=== PATIENT | female | born 2000 | race Caucasian/White ===

== ENCOUNTER 2023-03-02 19:06 | Emergency (ER) | payer OTHER ==
--- OUTSIDE RECORDS SUMMARY | 2023-03-02 19:12 | XMS REPORT | Continuity of Care Document ---
:2000 Author Organization [facility] t Address [address] [place] [address] [address] [place] [address] Care Team Providers Name Role Phone ALEXIS CANDELARIO Attending Clinician Unavailable МАРИНА HERBERT Attending Clinician Unavailable MARQUIS WEBB Attending Clinician Unavailable LAURA PALAFOX Attending Clinician Unavailable BENJI NAVARRETE Attending Clinician Unavailable RAJINDER ZAMBRANO Attending Clinician Unavailable YIMI BRIGHT Attending Clinician Unavailable TAYLOR DIA Attending Clinician Unavailable GIANNA GOTTI Attending Clinician Unavailable SHERLY LIMA Attending Clinician Unavailable RYANNE GARRETT Attending Clinician Unavailable BRAD PEDRO Attending Clinician Unavailable SETH AMBROSE Attending Clinician Unavailable VALENTINE UREÑA Attending Clinician Unavailable MERVIN PEREZ Attending Clinician Unavailable MINGO ALVAREZ Attending Clinician Unavailable JAD COLMENARES Attending Clinician Unavailable LILI COULTER Attending Clinician Unavailable MARIE THOMAS Attending Clinician Unavailable MILLY ALMEIDA Attending Clinician Unavailable RAYO BARRAZA Attending Clinician Unavailable JANELLE GABRIEL Attending Clinician Unavailable RUSSELL HERNANDEZ Attending Clinician Unavailable NATHANIEL QUACH Attending Clinician Unavailable EDNA FINLEY Attending Clinician Unavailable PATRIZIA URBINA Attending Clinician Unavailable ALEXIS CANDELARIO M.D. Attending Clinician Unavailable AUSTIN CORONA Attending Clinician Unavailable OG BAUTISTA D.O. Attending Clinician Unavailable VAUGHN DUARTE M.D. Attending Clinician Unavailable MILLY ALMEIDA M.D. Attending Clinician Unavailable ENDER CHEW M.D. Attending Clinician Unavailable ALEXIS LERNER M.D. Attending Clinician Unavailable LAURA PALAFOX M.D. Attending Clinician Unavailable ANIYA JUAREZ M.D. Attending Clinician Unavailable SARAHI BARAHONA M.D. Attending Clinician Unavailable RADIOLOGY, MD PROVIDER Attending Clinician Unavailable KARI KIM M.D. Attending Clinician Unavailable REGINA PRITCHARD M.D. Attending Clinician Unavailable SY REEVES M.D. 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 UT meningitis meningitis 8-14 He alth 00:00: 00 Chronic Chronic Disease Active 2020-0 UT folliculit folliculit 6-15 He alth is is 00:00: 00 Diarrhea Diarrhea Disease Active 2020-0 UT 5-21 Health 00:00: 00 Chronic Chronic Disease Active 2020-0 UT GERD GERD 5-18 Health 00:00: 00 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 los 5-18 Health syndrome syndrome 00:00: 00 Generalize Generalize Disease Active 2020-0 U T d d 5-18 Health abdominal abdominal 00:00: pain pain 00 Displaceme Displaceme Disease Active 2019- U T nt of nt of 1-05 Health device device 00:00: 00 Donor port Donor port Disease Active 2019- U T pain pain 1-05 Health 00:00: 00 Encounter Encounter Disease Active 2019- [facility] for care for care 0-25 Health related to related to 00:00: Port-a-Cat Port-a-Cat 00 h h Dysautonom Dysautonom Disease Active 2019-0 U T ia ia 3-30 Health 00:00: 00 Irritable Irritable Disease Active 2019-0 UT bowel bowel 3-30 Health syndrome syndrome 00:00: with with 00 diarrhea diarrhea Chronic Chronic Disease Active 2017-08 UT nausea nausea 2-05 Health 00:00: 00 Chronic Chronic Disease Active UT pain due pain due 7-20 Health to trauma to trauma 00:00: 00 Drug-induc Drug-induc Disease Active U T ed ed 5-30 Health osteoporos osteoporos 00:00: is is 00 Dystonia Dystonia Disease Active UT 2-06 Health 00:00: 00 Intermitte Intermitte Disease Active U T nt nt 8-18 Health vomiting vomiting 00:00: 00 Heart Heart Disease Active UT murmur murmur 9-20 Health 00:00: 00 History of History of Problem Resolve UT Anxiety Anxiety d Physici and and ans depression depression History of History of Problem Resolve UT asthma asthma d Physici ans Autoimmune Autoimmune Problem Active U T encephalom encephalom Ph ysici yelitis yelitis ans History of History of Problem Resolve UT 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 Heart Heart Problem Active UT murmur murmur Physici ans Syncope Syncope Problem Active UT Physici ans SVT SVT Problem Active UT (supravent (supravent Ph ysici ricular ricular ans tachycardi tachycardi a) a) Tremor Tremor Problem Active [facility] ans Diarrhea Diarrhea Problem Active [facility] Physici ans Intermitte Intermitte Problem Active U T nt nt Physici vomiting vomiting ans History of History of Problem Resolve UT Irritable Irritable d Phys ici bowel bowel ans syndrome syndrome with both with both constipati constipati on and on and diarrhea diarrhea Convulsion Convulsion Problem Active U T , , Physici non-epilep non-epilep an s tic tic Vitamin B Vitamin B Problem Active UT 12 12 Physici deficiency deficiency an s Dystonia Dystonia Problem Active UT Physici ans Microcytic Microcytic Problem Active U T anemia anemia Physici ans Nausea, Nausea, Problem Active UT vomiting, vomiting, Phys ici and and ans diarrhea diarrhea History of History of Problem Resolve UT On On d Physici prednisone prednisone an s therapy therapy Spasticity Spasticity Problem Active U T Physici ans Drug-induc Drug-induc Problem Active U T ed ed Physici osteoporos osteoporos an s is is Chronic Chronic Problem Active UT pain due pain due Physic i to trauma to trauma ans Thyroid Thyroid Problem Active UT dysfunctio dysfunctio Ph ysici n n ans Chronic Chronic Problem Active UT nausea nausea Physici ans History of History of Problem Resolve UT Steroid Steroid d Physici acne acne ans Chronic Chronic Problem Active UT folliculit folliculit Ph ysici is is ans Generalize Generalize Problem Active U T d d Physici abdominal abdominal ans pain pain Chronic Chronic Problem Active UT GERD GERD Physici ans Vitamin D Vitamin D Problem Active UT deficiency deficiency Ph ysici ans Use of Use of Problem Active UT proton proton Physici pump pump ans inhibitor inhibitor therapy therapy Irritable Irritable Problem Active UT bowel bowel Physici syndrome syndrome ans with with diarrhea diarrhea Lamine-Mick Lamine-Mick Problem Active U T los los Physici syndrome syndrome ans Dysautonom Dysautonom Problem Active U T ia ia Physici ans Poor Poor Problem Active UT intravenou intravenou Ph ysici s access s access ans Secondary Secondary Problem Active [facility] [place] [place] syndrome syndrome ans Encounter Encounter Problem Active [facility] for care for care Physic i related to related to an s Port-a-Cat Port-a-Cat h h 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 Ph ysici -ataxia -ataxia ans syndrome syndrome Donor port Donor port Problem Active U T pain pain Physici ans Displaceme Displaceme Problem Active U T nt of nt of Physici device device ans History of History of Problem Resolve UT Port-A-Cat Port-A-Cat d Ph ysici h in place h in place an s Aseptic Aseptic Problem Active UT meningitis meningitis Ph ysici ans Migraines Migraines Problem Active UT Physici ans COVID-19 COVID-19 Problem Active UT virus virus Physici infection infection ans Well Well Problem Active UT female female Physici exam with exam with ans routine routine gynecologi gynecologi yessica exam yessica exam Neuropathi Neuropathi Problem Active U T c pain c pain Physici ans Lamine-Mick Lamine-Da Problem Active 2016-02-15 Memoria los nlos 04:10:36 l disease disease Yovany Active Problem 02/15/2016 2..[id number] [id number] Dysautonom Dysautono Problem Active 2016-02-15 Memoria ia dimitrios Active 04:10:36 l Problem [place] 02/15/2016 [id number] Neurologic Problem Active 2016-02-15 M barbie al Neurologic 04:10:36 l symptoms al Yovany symptoms Active Problem 02/15/2016 2.16.840. [id number] 054 Encephalop Encephalo Problem Active 2016-02-15 Memoria athy ghassan 04:10:36 l Active [place] Problem 02/15/2016 2.16.840.1 [id number] 54 Syncope Syncope Problem Active 2016-02-15 Me moria and and 04:10:36 l collapse collapse Norbert n Active Problem 02/15/2016 2.16.840.1 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 [id number] 54 Seizure Seizure Problem Active 2016-02-15 Me isabellaa Active 04:10:36 l Problem Yovany 02/15/2016 2.16.840. 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 [id number] 54 Allergies, Adverse Reactions, Alerts Allergy Allergy Status Severity Reaction(s) Onset Inactive Treating Comm ents Source Name Type Date Date Clinician Etomidat Allergy Active UT e to 12-03 Health substanc 00:00: e 00 Proprano Allergy Active UT lol to 12-03 Health substanc 00:00: e 00 Skin Drug Active UT Protecta Allergy 12-03 Health nts, 00:00: Misc. 00 Etomidat Etomidat Active Info Not Zhen bee e e Available 4-14 l 00:00: Yovany 00 N.K.D.A. N.K.D.A. Active Info Not 2014-08 Zhen bee Available 0-23 l 00:00: [place] 00 Tegaderm Allergy Active UT MISC to drug Physici (finding ans ) etomidat Allergy Active UT e to drug Physici (finding ans ) proprano Allergy Active UT lol to drug Physici (finding ans ) Family History Family Member Diagnosis Comments Start Date Stop Date Source Mother Family history of Vasovagal [facility] syncope Social History Social Habit Start Date Stop Date Quantity Comments Source Exposure to SARS-CoV-2 Not sure [facility] (event) Sex Assigned At 2000 2000 [facility] 00:00:00 00:00:00 Smoking Status Start Date Stop Date Source Never smoked tobacco (finding) [facility] Unknown if ever smoked [facility] Medications Ordered Filled Start Stop Current Ordering Indication Dosage Frequency Signature Comments Components Source Medication Medication Date Date Medication? Clinician (SIG) Name Name OXcarbazepi OXcarbazepi Yes ALEXIS Q0.5D TAKE 1 UT ne 150 MG ne 150 MG 1-19 YANN TABLET Physici Oral Tablet Oral Tablet 00:00: M.D. TWICE ans 00 DAILY. Divalproex Divalproex Yes SONIA 4 QD TAKE 4 UT Sodium ER Sodium ER 8-25 R TOMÁS TABLET Physici 250 MG Oral 250 MG Oral 00:00: M.D. DAILY ans Tablet Tablet 00 Extended Extended Release 24 Release 24 Hour Hour FLUoxetine Yes 40mg QD Take 40 mg U T (PROzac) 40 5-11 by mouth 1 He alth MG capsule 15:34: (one) time 19 each day. hydroxychlo 2020- No [id number] 200mg QD Take 1 UT roquine 5-11 07-11 tablet Health (Plaquenil) 00:00: 04:59 (200 mg 200 MG 00 :00 total) by tablet mouth 1 (one) time each day. predniSONE Yes TAKE 24 UT (Deltasone) 3-04 TABLET Health 50 MG 00:00: Daily tablet 00 methylPREDN 2019-08 Yes USE UT ISolone 0-16 DIRECTED Health (Medrol 00:00: Dospak) 4 00 MG tablets SUMAtriptan Yes TAKE 1 UT (Imitrex) 9-08 TABLET Health 25 MG 00:00: DAILY PRN tablet 00 migraine SUMAtriptan SUMAtriptan Yes VAUGHN 1 QD TAKE 1 UT Succinate Succinate 9-08 GERALD M.D. TABLET Physici 25 MG Oral 25 MG Oral 00:00: DAILY PRN ans Tablet Tablet 00 migraine nadolol Yes Take 1 UT (Corgard) 7-07 tablet by Healt h 20 MG 00:00: mouth, tablet 00 twice daily Nadolol 20 Nadolol 20 Yes ENDER CHEW Take 1 UT MG Oral MG Oral 7-07 M.D. tablet by Phys ici Tablet Tablet 00:00: mouth, ans 00 twice daily rifAXIMin Yes Take 1 tab UT (Xifaxan) 6-01 by mouth Health 550 MG 00:00: three tablet 00 times daily x 2 weeks. Xifaxan 550 Xifaxan 550 Yes LAURA Take 1 tab UT MG Oral MG Oral 6-01 VAN by mouth Physi ci Tablet Tablet 00:00: ARSDALL three ans 00 M.D. times daily x 2 weeks. nadolol 2018-08 Yes TAKE 1 UT (Corgard) 0-02 TABLET Health 40 MG 00:00: BEDTIME tablet 00 Nadolol 40 Nadolol 40 2018-08 Yes SARAHI 1 TAKE 1 UT MG Oral MG Oral 0-02 JUN TABLET P hysici Tablet Tablet 00:00: M.D. BEDTIME ans 00 hydroxocoba Yes INJECT 1 UT richi 1000 7-23 ML IN THE Heal th MCG/ML 00:00: MUSCLE solution 00 EVERY 2 WEEKS Hydroxocoba Hydroxocoba Yes ENDER CHEW INJECT 1 UT richi richi 7-23 M.D. ML IN THE Physici Acetate Acetate 00:00: MUSCLE ans 1000 MCG/ML 1000 MCG/ML 00 EVERY 2 Intramuscul Intramuscul WEEKS ar Solution ar Solution omeprazole Yes TAKE TWO UT (PriLOSEC) 7-18 CAPSULES Healt h [address] 00:00: BY MOUTH capsule 00 DAILY AT LEAST 30 MINUTES TO 1 HOUR PRIOR TO EATING. Omeprazole Omeprazole Yes LAURA TAKE TWO UT 40 MG Oral 40 MG Oral 7-18 VAN CAPSULES Physici Capsule Capsule 00:00: ARSDALL BY MOUTH ans Delayed Delayed 00 M.D. DAILY AT Release Release LEAST 30 MINUTES TO 1 HOUR PRIOR TO EATING. immune 2019-0 Yes Gammunex C UT globulin, 5-10 10 % 74 gm Heal th human, 00:00: IV every 3 (Gamunex-C) 00 weeks x 1 infusion year Gamunex-C Gamunex-C 2018- Yes ALEXIS Vazquezx C UT 10 GM/100ML 10 GM/100ML 5-10 ANDREE 10 % 74 gm Physici Injection Injection 00:00: M.D. IV every 3 ans Solution Solution 00 weeks x 1 year clonazePAM 2018- Yes Place 1 UT (KlonoPIN) 5-03 tablet Health 2 MG 00:00: under disintegrat 00 tongue PRN ing tablet clonazePAM clonazePAM Yes ENDER CHELER Place 1 UT 2 MG Oral 2 MG Oral 5-03 M.D. tablet Phy sici Tablet Tablet 00:00: under ans Disintegrat Disintegrat 00 tongue PRN ing ing hyoscyamine 2018- Yes Place 1/2 U T (Levsin) 4-12 tablet (up Healt h 0.125 MG SL 00:00: to 2 full tablet 00 tablets) under the tongue and allow to dissolve every 4 hours as needed for abdominal pain and cramping. Hyoscyamine Hyoscyamine 2018- Yes LAURA Place 1/2 UT Sulfate Sulfate 4-12 VAN tablet (up Phy sici 0.125 MG 0.125 MG 00:00: ARSDALL to 2 full ans Sublingual Sublingual 00 M.D. tablets) Tablet Tablet under the Sublingual Sublingual tongue and allow to dissolve every 4 hours as needed for abdominal pain and cramping. promethazin 2017-08 Yes TAKE 1 UT e 2-05 TABLET Health (Phenergan) 00:00: EVERY 6 25 MG 00 HOURS tablet NEEDED FOR NAUSEA. Promethazin Promethazin 2017-08 Yes LAURA Q6H TAKE 1 UT e HCl - 25 e HCl - 25 2-05 VAN TABLET P hysici MG Oral MG Oral 00:00: ARSDALL EVERY 6 a ns Tablet Tablet 00 M.D. HOURS NEEDED FOR NAUSEA. ergocalcife Yes TAKE 1 UT rol 7-10 CAPSULE Health (Vitamin 00:00: EVERY D2) 1.25 MG 00 SATURDAY and (19332 UT) capsule or Saturday (total of twice weekly); TAKE WITH FOOD. Vitamin D Vitamin D Yes LAURA TAKE 1 UT (Ergocalcif (Ergocalcif 7-10 VAN CAPSULE Physici pedro) 1.25 pedro) 1.25 00:00: ARSDALL EVERY ans MG (55148 MG (06759 00 M.D. SATURDAY and UT) Oral UT) Oral Capsule Capsule or Saturday (total of twice weekly); TAKE WITH FOOD. Fludrocorti Yes Yoni 1 tablet M emoria sone 04-28 [place] Acetate 00:00: Yovany 00 Methocarbam Yes Yoni Unknown Me moria ol 11-28 [place] 04:14: Yovany 44 Fluoxetine Yes Yoni 1 capsule M emoria HCl (PMDD) 11-28 [place] 04:14: Yovany 44 Etodolac Yes Oyni 1 tablet Zhen bee 11-28 [place] 04:14: Yovany 44 Symbicort Yes Yoni 2 puffs Zhen bee - [place] 04:14: Yovany 44 [place] Yes Yoni 1 tablet Memoria - [place] as needed l 04:14: Yovany 44 [place] Yes Yoni 1 puff Memoria 11-28 [place] 04:14: Yovany 44 Multivitami Yes Yoni Unknown Me moria n - [place] 04:14: Yovany 44 Duloxetine Yes Yoni 1 capsule M emoria HCl - [place] 04:14: Yovany 44 Xopenex HFA Yes Yoni 1 puff as Memoria - [place] needed l 04:14: Yovany 44 Levalbutero Yes Yoni 3 ml Memor ia l HCl 11-28 [place] 04:14: Yovany 44 Acetaminoph Yes Yoni 1 capsule Memoria en - [place] as needed l 04:14: Yovany 44 Slow Yes Yoni Unknown Memoria Release 11-28 [place] Iron 04:14: Yovany 44 Fludrocorti Yes Yoni Unknown Me moria sone - [place] Acetate 04:14: Yovany 44 Nexium 2016-0 Yes Yoni Unknown Memoria 4-26 [place] 04:14: 44 Amitriptyli 2014-08 Yes Yoni 1 tablet M emoria ne HCl 2-28 [place] 00:00: 00 Fludrocorti 2014- Yes Yoni 1 tablet M emoria sone 0-23 [place] Acetate 00:00: 00 Immunizations Ordered Immunization Filled Immunization Date Status Commen ts Source Name Name influenza virus 2013-05-28 Completed [facility] vaccine, unspecified 00:00:00 formulation Meningococcal, MCV4, 2013-03-19 Completed [facility] P [facility]ysicians unspecified 00:00:00 conjugate formulation(groups A, C, Y and W-135) Influenza, seasonal, 2012-07-02 Completed [facility] injectable, 00:00:00 preservative free Boostrix 5-2.5-18.5 2012-01-31 Completed [facility] Intramuscular 00:00:00 Suspension Hepatitis A 2011-01-25 Completed [facility] 00:00:00 Hepatitis A 2009-03-01 Completed [facility] 00:00:00 influenza virus 2006-07-08 Completed [facility] ians vaccine, unspecified 00:00:00 formulation Varivax 1350 2005-01-02 Completed [facility] s PFU/0.5ML 00:00:00 Subcutaneous Injectable OPV 2004-07-04 Completed [facility] 00:00:00 DTaP, unspecified 2004-07-04 Completed [facility] formulation 00:00:00 M-M-R II 2004-07-04 Completed [facility] Subcutaneous 00:00:00 Injectable M-M-R II 2002-01-01 Completed [facility] Subcutaneous 00:00:00 Injectable Hib, Haemophilus 2001-10-03 Completed [facility] influenzae type b 00:00:00 vaccine, conjugate unspecified formulation OPV 2001-10-03 Completed [facility] 00:00:00 DTaP, unspecified 2001-10-03 Completed [facility] formulation 00:00:00 Hepatitis B vaccine, 2000 Completed [facility]ys[facility] unspecified 00:00:00 formulation Hib, Haemophilus 2000 Completed [facility] influenzae type b 00:00:00 vaccine, conjugate unspecified formulation DTaP, unspecified 2000 Completed [facility] formulation 00:00:00 Hib, Haemophilus 2000 Completed [facility] influenzae type b 00:00:00 vaccine, conjugate unspecified formulation OPV 2000 Completed [facility] 00:00:00 DTaP, unspecified 2000 Completed [facility] formulation 00:00:00 Hib, Haemophilus 2000 Completed [facility] influenzae type b 00:00:00 vaccine, conjugate unspecified formulation OPV 2000 Completed [facility] 00:00:00 DTaP, unspecified 2000 Completed [facility] formulation 00:00:00 Hepatitis B vaccine, 2000 Completed [facility] unspecified 00:00:00 formulation Hepatitis B vaccine, 2000 Completed [facility] unspecified 00:00:00 formulation FluMist LIQD Unknown Completed [facility] Vital Signs Vital Name Observation Time Observation Value Comments Source Systolic blood 2020-11-25 123 mm[Hg] Location: R[facility]; [place] [facility] pressure 09:15:00 Position: Sitting Diastolic blood 2020-11-25 81 mm[Hg] Location: [facility]; [facility] ans pressure 09:15:00 Position: Sitting Body height 2020-11-25 62 [in_us] [facility] 09:15:00 Weight 2020-11-25 160 [lb_av] [facility] 09:15:00 Body mass index 2020-11-25 29.26 kg/m2 [facility] (BMI) [Ratio] 09:15:00 Body temperature 2020-11-25 96.5 [degF] Method: [facility] ns 09:15:00 Temporal Heart Rate 2020-11-25 86 /min [facility] 09:15:00 Height 2019-08-07 160 cm [facility] 15:20:00 Weight 2019-08-07 68.2 kg [facility] 15:20:00 Body Mass Index 2019-08-07 26.64 kg/m2 [facility] Calculated 15:20:00 Temperature 2019-08-07 97.3 [degF] Method: [facility] 15:20:00 Tympanic Head Circumference 2019-08-07 58.5 cm [facility] 15:20:00 BP Systolic 2019-06-09 112 mm[Hg] Location: [facility]; [facility] 09:31:00 Position: Sitting BP Diastolic 2019-06-09 86 mm[Hg] Location: [facility]; [facility] 09:31:00 Position: Sitting Height 2019-06-09 61 [in_us] [facility] 09:31:00 Weight 2019-06-09 163.5 [lb_av] [facility] 09:31:00 Body Mass Index 2019-06-09 30.89 kg/m2 [facility] Calculated 09:31:00 Temperature 2019-06-09 98.6 [degF] Method: Oral [facility] 09:31:00 Heart Rate 2019-06-09 72 /min Quality: [facility] 09:31:00 Normal Respiration Rate 2019-06-09 16 /min Quality: [facility] ns 09:31:00 Normal O2 SAT 2019-06-09 100 % Source: [facility] 09:31:00 BP Systolic 2019-06-03 114 mm[Hg] Location: L[facility]; [facility] 09:44:00 Position: Sitting BP Diastolic 2019-06-03 79 mm[Hg] Location: [facility]; [facility] 09:44:00 Position: Sitting Height 2019-06-03 61.81 [in_us] [facility] 09:44:00 Weight 2019-06-03 163.375 [lb_av] [facility] 09:44:00 Body Mass Index 2019-06-03 30.06 kg/m2 [facility] Calculated 09:44:00 Temperature 2019-06-03 98.4 [degF] Method: Oral [facility] 09:44:00 Heart Rate 2019-06-03 69 /min [facility] 09:44:00 O2 SAT 2019-06-03 100 % Source: [facility] 09:44:00 BP Systolic 2019-05-01 112 mm[Hg] Location: [facility]; [facility] 08:54:00 Position: Sitting BP Diastolic 2019-05-01 74 mm[Hg] Location: [facility]; [facility] 08:54:00 Position: Sitting O2 SAT 2019-05-01 99 % Source: RA [facility] 08:54:00 Height 2019-05-01 157 cm [facility] 08:54:00 Weight 2019-05-01 74.8 kg [facility] 08:54:00 Body Mass Index 2019-05-01 30.35 kg/m2 [facility] Calculated 08:54:00 Heart Rate 2019-05-01 71 /min [facility] 08:54:00 Height 2019-02-16 62 [in_us] [facility] 08:25:00 Weight 2019-02-16 172 [lb_av] [facility] 08:25:00 Body Mass Index 2019-02-16 31.46 kg/m2 [facility] Calculated 08:25:00 BP Systolic 2018-12-19 117 mm[Hg] Location: [facility]; [facility] 13:05:00 Position: Sitting BP Diastolic 2018-12-19 77 mm[Hg] Location: [facility]; [facility] 13:05:00 Position: Sitting O2 SAT 2018-12-19 99 % Source: RA [facility] 13:05:00 Height 2018-12-19 159 cm [facility] 13:05:00 Weight 2018-12-19 81.4 kg [facility] 13:05:00 Body Mass Index 2018-12-19 32.2 kg/m2 [facility] Calculated 13:05:00 Heart Rate 2018-12-19 84 /min [facility] 13:05:00 BP Systolic 2018-12-16 114 mm[Hg] [facility] 14:05:00 BP Diastolic 2018-12-16 75 mm[Hg] [facility] 14:05:00 Height 2018-12-16 159.4 cm [facility] 14:05:00 Weight 2018-12-16 80.2 kg [facility] 14:05:00 Body Mass Index 2018-12-16 31.56 kg/m2 [facility] Calculated 14:05:00 Heart Rate 2018-12-16 91 /min [facility] 14:05:00 BP Systolic 2018-12-05 114 mm[Hg] Location: [facility]; [facility] 13:58:00 Position: Sitting BP Diastolic 2018-12-05 76 mm[Hg] Location: [facility]; [facility] 13:58:00 Position: Sitting Height 2018-12-05 158.6 cm [facility] 13:58:00 Weight 2018-12-05 82.3 kg [facility] 13:58:00 Body Mass Index 2018-12-05 32.72 kg/m2 [facility] Calculated 13:58:00 Heart Rate 2018-12-05 99 /min Location: L [facility] 13:58:00 Brachial Artery; Temperature 2018-12-05 97.9 [degF] Method: [facility] 13:58:00 Tympanic Head Circumference 2018-12-05 57.9 cm [facility] 13:58:00 BP Systolic 2018-10-30 111 mm[Hg] Location: [facility]; [facility] 13:33:00 Position: Sitting BP Diastolic 2018-10-30 75 mm[Hg] Location: [facility]; [facility] 13:33:00 Position: Sitting Height 2018-10-30 159.5 cm [facility] 13:33:00 Weight 2018-10-30 83.2 kg [facility] 13:33:00 Body Mass Index 2018-10-30 32.7 kg/m2 [facility] Calculated 13:33:00 Temperature 2018-10-30 98.3 [degF] Method: [facility] 13:33:00 Tympanic Heart Rate 2018-10-30 82 /min [facility] 13:33:00 BP Systolic 2018-09-02 111 mm[Hg] [facility] 15:23:00 BP Diastolic 2018-09-02 77 mm[Hg] [facility] 15:23:00 Height 2018-09-02 160 cm [facility] 15:23:00 Weight 2018-09-02 86.1 kg [facility] 15:23:00 Body Mass Index 2018-09-02 33.63 kg/m2 [facility] Calculated 15:23:00 Temperature 2018-09-02 98.8 [degF] [facility] 15:23:00 Heart Rate 2018-09-02 80 /min [facility] 15:23:00 Head Circumference 2018-09-02 58 cm [facility] 15:23:00 BP Systolic 2018-08-18 117 mm[Hg] [facility] 11:38:00 BP Diastolic 2018-08-18 76 mm[Hg] [facility] 11:38:00 Height 2018-08-18 158.8 cm [facility] 11:38:00 Weight 2018-08-18 87.2 kg [facility] 11:38:00 Body Mass Index 2018-08-18 34.58 kg/m2 [facility] Calculated 11:38:00 Heart Rate 2018-08-18 71 /min [facility] 11:38:00 BP Systolic 2018-08-08 121 mm[Hg] Location: [facility]; [facility] 16:34:00 Position: Sitting BP Diastolic 2018-08-08 74 mm[Hg] Location: [facility]; [facility] 16:34:00 Position: Sitting Height 2018-08-08 157.5 cm [facility] 16:34:00 Weight 2018-08-08 89.8 kg [facility] 16:34:00 Body Mass Index 2018-08-08 36.2 kg/m2 [facility] Calculated 16:34:00 Temperature 2018-08-08 97.8 [degF] Method: [facility] 16:34:00 Tympanic Heart Rate 2018-08-08 90 /min Location: [facility] 16:34:00 Brachial Artery; Head Circumference 2018-08-08 57 cm [facility] 16:34:00 Weight 2015-11-17 [facility] 19:[facility]:00 Height 2015-11-17 [facility] 19:[facility]:00 Temperature Oral (F) 2015-11-17 97.0 F [facility] 19:00:00 Heart Rate 2015-11-17 [facility] 19:00:00 Diastolic (mm Hg) 2015-11-17 [facility] 19:00:00 Systolic (mm Hg) 2015-11-17 [facility] 19:00:00 Weight 2015-08-01 [facility] 14:15:00 Height 2015-08-01 [facility] 14:15:00 Temperature Oral (F) 2015-08-01 97.2 F [facility] [place] 14:15:00 Heart Rate 2015-08-01 [facility] 14:15:00 Diastolic (mm Hg) 2015-08-01 [facility] 14:15:00 Systolic (mm Hg) 2015-08-01 [facility] rmann 14:15:00 Temperature Oral (F) 2015-05-27 97.5 F [facility] [place] 13:30:00 Heart Rate 2015-05-27 [facility] 13:30:00 Diastolic (mm Hg) 2015-05-27 [facility] 13:30:00 Systolic (mm Hg) 2015-05-27 [facility] 13:30:00 Weight 2015-05-27 [facility] 13:30:00 Height 2015-05-27 [facility] 13:30:00 Procedures Procedure Date / Time Performed Performing Clinician Sourc e . [facility] - Affirm VPIII (BV 2020-11-25 00:00:00 [facility] Panel) . [facility] - GC/Chlamydia 2020-11-25 00:00:00 [facility] [Q] HEPATITIS B SURFACE 2020-11-25 00:00:00 [facility] ANTIGEN W/REFL CONFIRM [Q] HIV AB, HIV 1/2, EIA, 2020-11-25 00:00:00 [facility] WITH REFLEXES [QL] HEPATITIS C ANTIBODY 2020-11-25 00:00:00 [facility] [QL] RPR (DX) W/REFL TITER 2020-11-25 00:00:00 [facility] AND CONFIRMATORY TESTING [QL] VITAMIN D, 25-HYDROXY, 2019-12-24 00:00:00 [facility] LC/MS/MS [QL] CBC (INCLUDES DIFF/PLT) 2019-12-24 00:00:00 [facility] [QL] CMP W/EGFR 2019-12-24 00:00:00 [facility] [QL] SED RATE BY MODIFIED 2019-12-24 00:00:00 [facility] WESTERGREN [QL] CLOSTRIDIUM DIFFICILE 2019-12-24 00:00:00 [facility] TOXIN A AND B, EIA [QL] CULTURE, STOOL 2019-12-24 00:00:00 [facility] (CAMPYLOBACTER, SALMONELLA/SHIGELLA) [Q] ADENOVIRUS AG DETECTION, 2019-12-24 00:00:00 [facility] GASTROENTERITIS, EIA [QL] GIARDIA AG, EIA, STOOL 2019-12-24 00:00:00 [facility] EKG (In Office) 2019-08-31 00:00:00 [facility] Echo (In Office) 2019-08-31 00:00:00 [facility] [QLH] HEPATITIS B CORE AB 2019-08-03 00:00:00 [facility] TOTAL [QLH] HEPATITIS PANEL 2019-08-03 00:00:00 [facility] VR Vascular/Interventional 2019-06-09 00:00:00 [facility] Radiology Consult Injection, Therapeutic, 2019-06-05 00:00:00 [facility] Prophylactic, Diagnostic EKG (In Office) 2019-04-22 00:00:00 [facility] Echo (In Office) 2019-04-22 00:00:00 [facility] [QLH] ACTH, PLASMA 2019-01-21 00:00:00 [facility] [Q] PLASMA RENIN 2019-01-21 00:00:00 [facility] ACTIVITY,LC/MS/MS [QLH] CORTISOL, TOTAL 2019-01-21 00:00:00 [facility] [QLH] T4, FREE 2019-01-21 00:00:00 [facility] [QLH] TSH, 3RD GENERATION 2019-01-21 00:00:00 [facility] [QLH] BASIC METABOLIC PANEL 2019-01-21 00:00:00 [facility] W/EGFR EKG (In Office) 2018-12-16 00:00:00 [facility] Echo (In Office) 2018-12-16 00:00:00 [facility] [L] ACTH-ICMA - Esoterix 2018-12-09 00:00:00 [facility] [Q] CORTISOL, TOTAL, LC/MS/MS 2018-12-09 00:00:00 [facility] [Q] TSH RECEPTOR ANTIBODY 2018-12-09 00:00:00 [facility] [QLH] THYROID PEROXIDASE 2018-12-09 00:00:00 [facility] ANTIBODIES [L] Antithyroglobulin Ab 2018-12-09 00:00:00 [facility] [QLH] THYROGLOBULIN 2018-12-09 00:00:00 [facility] ANTIBODIES [QLH] TSH, 3RD GENERATION 2018-12-09 00:00:00 [facility] [QLH] T4, TOTAL (THYROXINE) 2018-12-09 00:00:00 [facility] [QLH] T3, TOTAL 2018-12-09 00:00:00 [facility] Hydrogen Breath Test 2018-11-06 00:00:00 [facility] [L] ACTH-ICMA - [facility]oter[facility] 2018-08-18 00:00:00 [facility] [Q] CORTISOL, TOTAL, LC/MS/MS 2018-08-18 00:00:00 [facility] [QLH] THYROID PEROXIDASE 2018-08-08 00:00:00 [facility] ANTIBODIES [QLH] THYROGLOBULIN 2018-08-08 00:00:00 [facility] ANTIBODIES [Q] TSH RECEPTOR ANTIBODY 2018-08-08 00:00:00 [facility] [QLH] THYROID PANEL 2018-08-08 00:00:00 [facility] History of [place] [facility] Gastrointestinal Endoscopy (Therapeutic) Plan of Care Planned Activity Planned Date Details Comments Source Diagnostic Test Pending 2019-09-04 00:00:00 Echo (In Office) [facility] [code = 80395] Diagnostic Test Pending 2019-05-01 00:00:00 Echo (In Office) [facility] [code = 27015] Diagnostic Test Pending 2018-12-19 00:00:00 Echo (In Office) [facility] [code = 91621] Encounters Start End Encounter Admission Attending Care Care Encounter Source Date/Time Date/Time Type Type Clinicians Facility Department ID 2023-01-30 Outpatient [facility] [id number] [place] 08:35:29 [id number] [facility] 2023-01-14 Outpatient [facility] [id number] UT 10:05:23 [id number] [facility] 2023-01-01 Outpatient [facility] UT [id number] UT 11:56:55 [id number] [facility] 2022-11-29 Outpatient [facility] [id number] UT 18:03:07 [id number] [facility] 2022-11-13 Outpatient [facility] [id number] UT 15:39:43 [id number] [facility] 2022-11-07 Outpatient [facility] [id number] UT 15:51:28 [id number] [facility] 2022-10-23 Outpatient [facility] [id number] UT 09:58:40 [id number] [facility] 2022-10-19 Outpatient [facility] [id number] UT 11:14:42 [id number] [facility] 2022-09-24 Outpatient [facility] UT [id number] UT 14:06:33 [id number] [facility] 2022-09-19 Outpatient [facility] [id number] UT 10:46:29 [id number] [facility] 2022-09-05 Outpatient [facility] [id number] UT 06:11:03 [id number] [facility] 2022-09-04 Outpatient [facility] UT [id number] UT 10:14:26 [id number] [facility] 2022-09-03 Outpatient [facility] UT [id number] UT 11:08:41 [id number] [facility] 2022-07-11 Outpatient [facility] UT [id number] UT 08:10:03 [id number] [facility] 2022-07-06 Outpatient [facility] UT [id number] UT 15:22:16 [id number] [facility] 2022-07-05 Outpatient [facility] UT [id number] UT 16:33:42 [id number] [facility] 2022-06-19 Outpatient [facility] UT [id number] UT 11:21:17 [id number] [facility] 2022-05-19 Outpatient UT UT [id number] UT 01:28:11 [id number] [facility] 2022-05-18 Outpatient [facility] UT [id number] UT 16:57:04 [id number] [facility] 2022-04-25 Outpatient [facility] UT [id number] UT 14:54:40 [id number] [facility] 2022-04-05 Outpatient [facility] UT [id number] UT 09:16:09 [id number] [facility] 2022-03-09 Outpatient [facility] UT [id number] UT 15:50:38 [id number] [facility] 2022-03-01 Outpatient [facility] UT [id number] UT 10:05:33 [id number] [facility] 2022-02-28 Outpatient UT UT [id number] UT 10:00:35 [id number] [facility] 2022-02-15 Outpatient UT UT [id number] UT 15:44:57 [id number] [facility] 2021-12-18 Outpatient ANDREE UT UT [id number] UT 10:01:39 ALEXIS [id number] [facility] 2021-12-12 Outpatient ANDREE, UT UT [id number] UT 16:38:58 ALEXIS [id number] [facility] 2021-12-06 Outpatient [facility] UT [id number] UT 07:41:14 [id number] [facility] 2021-11-22 Outpatient UT UT [id number] UT 07:02:47 [id number] [facility] 2021-11-08 Outpatient UT UT [id number] UT 08:40:19 [id number] [facility] 2021-11-05 Outpatient CHETOUL, UT UT [id number] UT 01:04:44 МАРИНА [id number] [facility] 2021-11-01 Outpatient JABREANNEOUL, UT UT [id number] UT 11:13:16 МАРИНА [id number] [facility] 2021-10-05 Outpatient [facility] UT [id number] UT 15:37:16 [facility] 2021-10-05 Outpatient JALLOUL, [place] UT [id number] UT 15:33:39 МАРИНА [facility] 2021-09-29 Outpatient JALLOUL, [facility] UT [id number] UT 08:22:11 [facility] 2021-09-01 Outpatient ANDREE, [facility] [id number] UT 15:10:54 [facility] 2021-07-07 Outpatient TRACEY, [facility] [id number] UT 14:55:36 [facility] 2021-04-19 Outpatient VAN [facility] [id number] UT 10:59:06 [facility] 2021-04-12 Outpatient LANDON, [facility] [id number] UT 15:38:21 [facility] 2021-01-27 Outpatient KENYA, [facility] [id number] UT 14:59:57 [facility] 2020-12-10 Outpatient KENYA, [facility] [id number] UT 03:08:03 [facility] 2019-05-24 Inpatient E [facility] MED [id number] MHH H 14:26:00 2019-03-19 [facility] [id number] MH HH 09:25:51 2019-01-09 Outpatient MH MH [id number] MH HH 09:26:05 2023-07-17 2023-07-17 Outpatient ANDREE, [facility] [id number] UT 09:30:00 09:30:00 [facility] 2023-02-06 2023-02-06 Outpatient KAILA, [facility] [id number] UT 10:30:00 11:03:[address] [facility] 2023-01-14 2023-01-14 Outpatient ANDREE, [facility] [id number] UT 10:30:00 11:24:17 [facility] 2022-11-13 2022-11-13 Outpatient DIA, [facility] [id number] UT 15:30:00 16:37:04 [facility] 2022-11-07 2022-11-07 Outpatient YUKSEL, [facility] [id number] UT 15:00:00 16:34:54 [facility] 2022-10-24 2022-10-24 Outpatient PRATIHAR, [facility] [id number] UT 10:00:00 10:00:00 [facility]JJOSSIEKY [facility] 2022-10-23 2022-10-23 Outpatient PRATIHAR, [facility] [id number] UT 12:00:00 12:22:35 RAJARSHI [facility] 2022-10-23 2022-10-23 Outpatient PRATIHAR, [facility] [id number] UT 10:00:00 10:00:00 RAJARSHI [facility]alt h 2022-10-19 2022-10-19 Outpatient GARRETT, [facility] [id number] UT 13:00:00 [facility]:00:[facility] 2022-10-02 Outpatient PEDRO, [facility] [id number] UT 15:30:00 15:30:00 [facility] 2022-09-24 2022-09-24 Outpatient ARNOL, [facility] [id number] UT 14:30:00 17:12:56 [facility] 2022-09-05 2022-09-05 Outpatient IVSILVERHOE, [facility] [id number] UT 12:30:00 12:30:00 [facility]22-09-04 2022-09-04 Outpatient DIA, [facility] [id number] UT 10:30:00 15:05:14 TAYLOR [facility] 2022-08-08 2022-08-08 Outpatient YUKSEL, [facility] [id number] UT 14:00:00 15:30:20 [facility] 2022-07-31 2022-07-31 Outpatient PEDRO, [facility] [id number] UT 11:30:00 12:14:59 [facility] 2022-07-16 2022-07-16 Outpatient MERVIN PEREZ [facility] [id number] UT 15:15:00 17:09:59 Health 2022-07-16 2022-07-16 Outpatient MINGO ALVAREZ [facility] [id number] UT 09:30:00 10:24:30 Health 2022-07-16 2022-07-16 Outpatient ANDREE, [facility] [id number] UT 09:30:00 09:30:00 [facility] 2022-07-06 2022-07-06 Outpatient DARRIAN, [facility] [id number] UT 16:00:00 17:02:11 [facility] 2022-06-19 2022-06-20 Emergency E MARYLIN, MHCY MHCY [id number] MHCY 16:27:00 00:12:00 LILI 2022-06-15 2022-06-15 Outpatient IGOR-ENRICO [facility] [id number] UT 13:00:00 14:48:20 MARIE MORALES alth 2022-06-01 2022-06-01 Outpatient IGOR-ENRICO [facility] [id number] UT 10:15:00 10:15:00 MARIE MORALES alth 2022-06-01 2022-06-01 Outpatient ADELITA, [facility] [id number] UT 10:00:00 10:00:00 [facility] 2022-05-21 2022-05-21 Outpatient [facility] [id number] UT 13:00:00 13:00:00 Health 2022-05-15 2022-05-15 Outpatient JUAN PABLO, [facility] [id number] UT 09:15:00 10:03:27 [facility] 2022-05-14 2022-05-14 Emergency E RAYO BARRAZA MHCY MHCY [id number] MHCY 14:10:00 17:12:00 2022-04-14 2022-04-14 Emergency E HARVEY, [facility] MED [id number] MHCY 10:37:00 13:15:00 [facility] 2022-03-22 2022-03-22 Outpatient GUALBERTO [facility] [id number] UT 10:20:00 15:49:01 Beka LOPEZ 2022-03-09 2022-03-09 Outpatient MARY, [facility] [id number] UT 14:00:00 15:53:56 [facility] 2022-03-05 2022-03-05 Outpatient ANDREE, [facility] [id number] UT 13:30:00 14:16:45 [facility] 2022-03-05 2022-03-05 Outpatient NENODEXTERKRYSTIAN, [facility] [id number] UT 13:00:00 13:00:00 [facility] 2022-01-26 2022-01-26 Emergency E TUSHAR ISACSHUBHAM MHCY MHCY [id number] MHCY 14:08:00 20:41:00 2021-12-13 2021-12-13 Outpatient ADELITA, [facility] [id number] UT 10:30:00 10:30:00 [facility] 2021-12-07 2021-12-07 Emergency E RAYO BARRAZA MHCY MHCY [id number] MHCY 11:36:00 15:18:00 2021-10-23 2021-10-23 Outpatient PATRIZIA URBINA [facility] [id number] UT 15:00:00 15:00:00 [facility] 2021-06-19 2021-06-19 Rosales CANDELARIO [facility] Neurology - [id number] [place] 10:30:00 10:30:00 t; [place] ESPINOZA [place] Geno Chester M.D. [place] 2021-05-08 2021-05-08 Outpatient KENYA, [facility] [id number] UT 09:30:00 09:30:00 [facility] 2021-04-17 2021-04-17 Outpatient CHLOE, [facility] [id number] UT 13:45:00 13:45:[address] [facility] 2021-03-29 2021-03-29 Rosales CANDELARIO [facility] Neurology - [id number] [place] 09:30:00 09:30:00 t; River ESPINOZA [place] Geno Chester M.D. [place] 2020-12-13 2020-12-13 Office [facility] 4 [id number] [place] 10:22:10 13:18:57 Visit Milly [id number] [facility] [id number] 2020-11-25 2020-11-25 NABILA Chen Obstetrics [id number] [place] 09:00:00 09:00:00 t; Fabiana FOLEY i, D.O. Gynecology [facility] 2020-11-15 2020-11-15 NABILA Carballo Pedi [id number] UT 09:30:00 09:30:00 t; VAUGHN DUARTE, Neurology Ph [place] Aranda M.D. 2020-10-25 2020-10-25 [facility] [id number] [place] 09:00:00 09:00:00 t; VAUGHN DUARTE, Neurology [place] Aranda M.D. 2020-08-30 2020-08-30 Ros[facility] [id number] UT 10:30:00 10:30:00 t; VAUGHN DUARTE, [facility] River MENDES M.D. 2020-05-02 2020-05-02 [facility] Neurology - [id number] UT 08:30:00 08:30:00 t; River ESPINOZA [facility] kaylen [facility] [place] ESP[place]ZA [place] 2020-02-24 2020-02-24 [facility] Derm[facility]ology [id number] [place] 09:25:00 09:25:00 t; MILLY - [place] Physi JUAN PABLO [facility]Y [facility] M.[facility]. 2020-02-24 2020-02-24 [facility] [id number] [place] 09:25:00 09:25:00 t; MILLY [facility] MILLY Spence M.D., M.D. 2020-02-05 2020-02-05 [facility] [id number] [place] 13:40:00 13:40:00 t; ENDER CHEW M.D. nova [facility] 2020-01-18 2020-01-18 [facility] D[facility] [id number] [place] 09:20:00 09:20:00 t; MILLY - [place] Physi JUAN PABLO [facility] MILLY [facility] M.D. 2019-12-24 2019-12-24 Ros[facility] Neu[facility] - [id number] [place] 14:30:00 14:30:00 t; River ESPINOZA [facility] kaylen LERNER Medical ans [place] ESPINOZA [place] 2019-12-21 2019-12-21 [facility] [id number] [place] 13:00:00 13:00:00 t; [facility] LAURA LOPEZ, Gastroenter an s [place] SANCHEZ M.D. [facility] 2019-11-26 2019-11-26 Rosales JUAREZ [facility] [id number] UT 08:30:00 08:30:00 t; ANIYA JUAREZ Phy sici PREETHI, M.D. ans M.D. 2019-10-19 2019-10-19 Rosales BLANCO [facility] Dermatology [id number] UT 10:30:00 10:30:00 t; MILLY - [facility] JUAN PABLO [facility] MILLY [facility] M.D. 2019-09-04 2019-09-04 Rosales BARAHONA [facility] Pedwhitney [id number] [place] 09:40:00 09:40:00 t; SARAHI, Cardiology SARAHI Fisher M.D., M.D. 2019-08-12 2019-08-12 Rosales BLANCO [facility] Dermatology [id number] UT 09:55:00 09:55:00 t; Katharine ATKINS [facility] JUAN PABLO [facility] MILLY [facility] M.D. 2019-08-07 2019-08-07 Rosales CHEW [facility] Pedi [id number] UT 15:00:00 15:00:00 t; ENDER CHEW M.D. Neurology [place] HANDLEY [facility] 2019-07-22 2019-07-22 Rosales CANDELARIO [facility] [id number] UT 10:30:00 10:30:00 t; River ESPINOZA ans JOHN, M.D. 2019-07-01 2019-07-01 Rosales BLANCO [facility] Dermatology [id number] UT 09:45:00 09:45:00 t; Katharine ATKINS [facility] MILLY [facility] M.D. 2019-06-26 2019-06-26 Outpatient [facility] [id number] [facility] 07:00:00 07:00:00 2019-06-12 2019-06-12 Outpatient [facility] [id number] [facility] 07:00:00 07:00:00 2019-06-09 2019-06-09 Outpatient [facility] [id number] MH 13:35:00 13:35:00 2019-06-09 2019-06-09 Rosales RADIOLOGY, UTP Interventio [id number] [place] 09:30:00 09:30:00 t; MD SANCHEZ [facility] RADIOLOGY, Radiology - a ns [facility] 2019-06-03 2019-06-03 Rosales ACNDELARIO, [facility] - [id number] [place] 09:30:00 09:30:00 t; [place] [facility] [place] ESPINOZA [place] 2019-05-24 2019-05-24 Inpatient [id number] MHCY 14:26:00 09:01:00 2019-05-06 2019-05-06 Outpatient [facility] [id number] MH 07:00:00 07:00:00 2019-05-01 2019-05-01 Rosales BARAHONA, [facility] Pedi [id number] UT 08:20:00 08:20:00 t; SARAHI, Cardiology Ph SARAHI Bowie M.D., M.D. 2019-04-10 2019-04-10 Outpatient [facility] [id number] MH 07:00:00 07:00:00 2019-03-19 2019-03-19 Rosales KIM, [facility] UTP [id number] UT 09:10:00 09:10:00 t; River PIERCE Ph KARI Russell M.D. 2019-03-16 2019-03-16 Rosales KIM, [facility] UTP [id number] UT 09:00:00 09:00:00 t; [place] PIERCE Ph KARI Russell M.D. 2019-02-26 2019-02-26 Outpatient [facility] [id number] MH 07:00:00 07:00:00 2019-02-24 2019-02-24 NABILA Pina Pedi [id number] UT 14:00:00 14:00:00 t; ENDER CHEW M.D. Neurology [place] [facility] 2019-02-16 2019-02-16 [facility] - [id number] UT 09:00:00 09:00:00 t; River [facility] [place] ESP[facility]ZA [place] 2019-02-06 2019-02-06 Outpatient [facility] [id number] [facility] 07:00:00 07:00:00 2019-01-23 2019-01-23 Outpatient [facility] [id number] [facility] 07:00:00 07:00:00 2019-01-20 2019-01-20 Rosales ALMEIDA [facility] Dermatology [id number] UT 09:30:00 09:30:00 t; MILLY [facility] JUAN PABLO [facility] MILLY Center M.D. 2018-12-26 2018-12-26 Outpatient [facility] [id number] [facility] 07:00:00 07:00:00 2018-12-19 2018-12-19 Rosales BARAHONA [facility] Pedi [id number] UT 13:00:00 13:00:00 t; SARAHI, Cardiology SARAHI Fisher M.D., M.D. 2018-12-16 2018-12-16 Rosales PRITCHARD [facility] Pediatric [id number] UT 14:00:00 14:00:00 t; [facility] TAPIA M.[facility]. [facility] lee Holman [employer] 2018-12-12 2018-12-12 Outpatient [facility] [id number] [facility] 07:00:00 07:00:00 2018-12-05 2018-12-05 Rosales CHEW [facility] [id number] UT 14:00:00 14:00:00 t; ENDER CHEW M.D. P nova [facility]LEY [facility] 2018-12-05 2018-12-05 Rosales CHEW [facility] Pedi [id number] UT 14:00:00 14:00:00 t; ENDER CHEW M.D. Neurology [place] [facility] 2018-12-01 2018-12-01 Outpatient [facility] [id number] [facility] 07:00:00 07:00:00 2018-11-14 2018-11-14 Outpatient [facility] [id number] [facility] 07:00:00 07:00:00 2018-10-31 2018-10-31 Outpatient [facility] [id number] [facility] 07:00:00 07:00:00 2018-10-30 2018-10-30 Appointdarlin GUARDADO Pedi [id number] UT 13:00:00 13:00:00 t; Mai PALAFOX MELISSA, ology ans MELISSA, M.D. M.D. 2018-10-28 2018-10-28 Rosales GRIFFITHSNURIA [facility] Dermatology [id number] UT 10:50:00 10:50:00 t; Adriana ATKINSNURIA MILLY Ricardo M.D. 2018-10-17 2018-10-17 Outpatient [facility] [id number] [facility] 07:00:00 07:00:00 2018-09-02 2018-09-02 AppointNABILA Garcia Pedi [id number] [place] 15:00:00 15:00:00 t; ENDER CHEW M.D. Neurology [place] [facility] 2018-08-18 2018-08-18 NABILA Paulino Pediatric [id number] [place] 11:20:00 11:20:00 t; REGINA PRITCHARD, [facility] TAPIA M.D. [facility] lee Holman [employer] 2018-08-08 2018-08-08 NABILA Pina Pedi [id number] [place] 16:00:00 16:00:00 t; ENDER CHEW M.D. Neurology Lew HANDLEY M.D. [facility] 2018-05-15 2018-05-15 NABILA Paulino [facility] [id number] [place] 11:00:00 11:00:00 t; REGINA PRITCHARD P hysici KATHERINE, M.D. ans M.D. 2018-05-02 2018-05-02 NABILA Pina UTP [id number] [place] 16:00:00 16:00:00 t; ENDER CHEW M.D. P hysici IAN, M.D. ans 2018-04-25 2018-04-25 [facility] JUN, [facility] UTP [id number] [place] 10:00:00 10:00:00 t; SARAHI [facility] SARAHI Tellez M.D., M.D. 2018-04-11 2018-04-[facility] UTP [id number] [place] 13:20:00 13:20:00 t; SARAHI Physi SARAHI Tellez M.D., M.D. 2018-02-25 2018-02-25 [facility] [id number] [place] 13:00:00 13:00:00 t; ENDER CHEW M.D. P hysici IAN, M.D. ans 2018-02-11 2018-02[facility] [id number] [place] 10:20:00 10:20:00 t; GUALBERTO LOPEZ Physi ci JAREKLL, LAURA, lee SANCHEZ M.D. M.D. 2017-11-12 2017-11-12 [facility] [id number] [place] 13:00:00 13:00:00 t; ENDER CHEW M.D. P hysici IAN, M.D. ans 2017-11-05 2017-11-05 [facility] [id number] [place] 09:40:00 09:40:00 t; GUALBERTO LOPEZ Physi ci JOSSIEDALL, LAURA, lee SANCHEZ M.D. M.D. 2017-10-08 2017-10-08 [facility] JEVEAN, [facility] UTP [id number] [place] 15:00:00 15:00:00 t; ENDER CHEW M.D. P hysici IAN, M.D. ans 2017-09-17 2017-09-17 [facility] NABILA CHEW UTP [id number] [place] 13:00:00 13:00:00 t; ENDER CHEW M.D. P hysici IAN, M.D. ans 2017-08-23 2017-08-23 Rosales SWANSONVASAN, [facility] UTP [id number] [place] 12:00:00 12:00:00 t; SARAHI Physi SARAHI Navarro M.D., M.D. 2017-08-22 2017-08-22 [facility] [id number] [place] 14:00:00 14:00:00 t; SY REEVES Phy sici DEBORAH, M.D. ans M.D. 2017-08-16 2017-08-16 [facility] JUN, [facility] UTP [id number] [place] 10:40:00 10:40:00 t; SARAHI Physi SARAHI Navarro M.D., M.D. 2017-07-05 2017-07-05 [facility] [id number] [place] 13:00:00 13:00:00 t; ENDER CHEW M.D. P hysici IAN, M.D. ans 2017-07-04 2017-07-04 [facility] [id number] [place] 10:20:00 10:20:00 t; GUALBERTO LOPEZ Physi ci LAURA LOPEZ ans MELISSA, M.D. M.D. 2017-06-17 2017-06-17 [facility] [id number] [place] 08:00:00 08:00:00 t; ENDER CHEW M.D. P hysici IAN, M.D. ans 2017-03-29 2017-03-29 [facility] [id number] [place] 13:00:00 13:00:00 t; ENDER CHEW M.D. P hysici IAN, M.D. ans 2017-03-22 2017-03-22 [facility] [id number] [place] 10:00:00 10:00:00 t; GUALBERTO LOPEZ Physi ci LAURA LOPEZ ans MELISSA, M.D. M.D. 2017-03-01 2017-03-01 [facility] J[facility], [facility]TP [id number] [place] 11:30:00 11:30:00 t; SARAHI Physi ci SARAHI Tellez M.D., M.D. 2017-02-19 2017-02-19 [facility] [id number] [place] 16:00:00 16:00:00 t; ENDER CHWE M.D. P hysici IAN, M.D. ans 2017-02-12 2017-02-12 [facility], [facility] UTP [id number] [place] 10:00:00 10:00:00 t; MILLY [facility] MILLY Ricardo M.D. 2017-01-15 2017-01-15 [facility] [id number] [place] 10:40:00 10:40:00 t; GUALBERTO LOPEZ Physi ci LAURA LOPEZ ans MELISSA, M.D. M.D. 2016-11-20 2016-11-20 [facility] [id number] [place] 13:00:00 13:00:00 t; ENDER CHEW M.D. P hysici IAN, M.D. ans 2016-11-20 2016-11-20 [facility], [facility] [id number] [place] 09:45:00 09:45:00 t; MILLY [facility] MILLY Ricardo M.D. 2016-09-21 2016-09-21 [facility] [id number] [place] 08:00:00 08:00:00 t; GUALBERTO LOPEZ Physi LAURA Braden ans MELISSA, M.D. M.D. 2016-09-07 2016-09-07 [facility] [id number] [place] 13:00:00 13:00:00 t; ENDER CHEW M.D. P hysici IAN, M.D. ans 2016-09-07 2016-09-07 [facility] JUN, [facility] UTP [id number] [place] 11:30:00 11:30:00 t; SARAHI Physi SARAHI Tellez M.D., M.D. 2016-09-04 2016-[facility] [id number] [place] 08:45:00 08:45:00 t; GUALBERTO LOPEZ Physi ci ARSDALL, LAURA, ans LAURA, M.D. M.D. 2016-02-14 2016-02-14 Muscle nullFlavelena Harper 1l7lpk5 5-8 Memoria 13:29:00 13:29:00 Spams margarita Cordero c4g-4828-9 [facility] [id number] Herm bryce cdb78a 2016-02-14 2016-02-14 Outpatient Yoni Harper [id number] Memoria 08:29:00 08:29:00 Gil Cordero l MD, PLL[facility]la [facility] Norbert n 2015-12-30 2015-12-30 prescripti abidaFlavo Yoni Harper b7db 61b2-5 Memoria 16:52:00 16:52:00 on refills r Gil 76f-4c8c- a [facility] 6ca-22n985 Herm bryce 09e8ba 2015-12-30 2015-12-30 prescripti abidaFlavo Yoni Harper 8736 76c1-5 Memoria 16:52:00 16:52:00 on refills margarita Cordero 8fc-4068- b [facility] 1bf-70d12d Herm bryce 5fe1e6 2015-12-30 2015-12-30 Outpatient Yoni Harper [id number] Memoria 11:52:00 11:52:00 Gil Cordero l MD, [facility] Norbert n 2015-12-21 2015-12-21 next step nullFlavo Yoni Harper 3829a 1e0-b Memoria 12:43:00 12:43:00 margarita Cordero ffd-449b-8 [facility] 3da-f0c0e6 Herm bryce [id number] 2015-12-21 2015-12-21 next step nullFlavo Yoni Harper 9e625 854-c Memoria 12:43:00 12:43:00 margarita Cordero 769-4c52-9 [facility] [id number] Herm bryce 126f37 2015-12-21 2015-12-21 next step nullFlavo Yoni Harper abbfa 685-b Memoria 12:43:00 12:43:00 margarita Cordero 7bb-482f-b [facility] 9l2-sa622s Herm bryce le0542 2015-12-21 2015-12-21 Outpatient Yoni Harper [id number] Memoria 07:43:00 07:43:00 Gil Cordero l MD, [facility] Norbert n 2015-11-17 2015-11-17 dysautonom nullFlavo Yoni Hudson. a6a9 d39c-2 Memoria 19:00:00 19:00:00 ia margarita Cordero 0d3-6210-v [facility] 106-2f5c9c Herm bryce 202cc3 2015-11-17 2015-11-17 dysautonom nullFlavo Yoni S. 4401 661d-2 Memoria 19:00:00 19:00:00 ia margarita Cordero w5c-167h-q [facility] 537-680b6f Herm bryce 4f30ab 2015-11-17 2015-11-17 dysautonom nullFlavo Yoni Hudson. 6095 840b-a Memoria 19:00:00 19:00:00 ia margarita Cordero 441-459b-b [facility] [id number] Herm bryce [id number] 2015-11-17 2015-11-17 dysautonom nullFlavo Yoni S. 36e3 d38f-5 Memoria 19:00:00 19:00:00 ia margarita Cordero eef-448f-a [facility] [id number] Herm bryce [id number] 2015-11-17 2015-11-17 Outpatient Yoni Harper [id number] Memoria 14:00:00 14:00:00 Gil Cordero l MD, [facility] Norbert n 2015-11-04 2015-11-04 APR: Ins nullFlavo Yoni Hudson. [id number] e4-d Memoria 20:24:00 20:24:00 Verificati margarita Cordero 87b-4a0b- b akosua shaffer MD[facility] PLL[facility] [id number] Herm bryce 36bfd2 2015-11-04 2015-11-04 APR: Ins nullFlavo Yoni Hudson. bf3d77 ea-7 Memoria 20:24:00 20:24:00 Verificati r Gil, 536-4ba0- 9 l on MD, PLLC [id number]-y62tb4 Herm bryce 7f71f7 2015-11-04 2015-11-04 APR: Ins nullFlavo Yoni Harper 0d58f1 0c-3 Memoria 20:24:00 20:24:00 Verificati r Gil, 9be-4f81- 8 l on MD, PLLC o77-sl823b Herm bryce 58ad67 2015-11-04 2015-11-04 APR: Ins nullFlavo Yoni Harper 1554d3 1b-e Memoria 20:24:00 20:24:00 Verificati r Cordero, 13f-4821- 9 l on MD, PLLC 1i8-1izj87 Herm bryce d32c8f 2015-11-04 2015-11-04 APR: Ins nullFlavo Yoni Harper 7f1cff 6f-e Memoria 20:24:00 20:24:00 Verificati r Gil, 7af-4d3d- b l on MD, PLLC [id number] Herm bryce [id number] 2015-11-04 2015-11-04 Outpatient Yoni Harper [id number] Memoria 15:24:00 15:24:00 Gil Cordero, akosua [facility], [facility] Norbert n 2015-08-01 2015-08-01 dysautonom nullFlavo Yoni Harper f3c1 ee7a-e Memoria 14:15:00 14:15:00 ia/lamine Cordero, v53-1083-f akosua palma MD[facility] [id number]-9c1944 Herm bryce 5tr260 2015-08-01 2015-08-01 dysautonom nullFlavo Yoni Hudson. 296a 194f-6 Memoria 13:15:00 13:15:00 ia/lamine Cordero, 03a-40b6-9 akosua palma MD[facility] 29f-3cadef Herm bryce 466407 5957-12-28 2015-08-01 dysautonom nullFlavo Yoni Harper a035 a5d6-c Memoria 13:15:00 13:15:00 ia/lamineallegra Cordero, 923-46b4-8 akosua palma MD[facility] 02d-5ab4c5 Herm bryce d1f3be 2015-08-01 2015-08-01 dysautonom nullFlavo Yoni S. 5da8 d7c2-9 Memoria 13:15:00 13:15:00 ia/lamine Cordero, ecb-4256-b akosua palma MD[facility] 109-c5a14d Herm bryce f28b43 2015-08-01 2015-08-01 dysautonom nullFlavo Yoni S. e399 5102-4 Memoria 13:15:00 13:15:00 ia/lamineallegra Cordero, 42c-480e-8 akosua palma MD[facility] 2ad-66c51e Herm bryce 606ce0 2015-08-01 2015-08-01 dysautonom nullFlavo Yoni S. 68c6 c07a-6 Memoria 13:15:00 13:15:00 ia/lamine Cordero, 29a-4462-9 akosua palma MD[facility] 32b-990a80 Herm bryce dfecaf 2015-08-01 2015-08-01 Outpatient Yoni S. Yoni S. [id number] Memoria 08:15:00 08:15:00 [facility] l [facility], [facility] [place]bert n 2015-07-27 2015-07-27 DEC: Ins nullFlavo Yoni S. sn545q ba-7 Memoria 13:25:00 13:25:00 Verificati margarita Cordero cfe-4439- 8 akosua shaffer MD[facility] PLL[facility] 839-[id number] Herm bryce 007206 3007-12-23 2015-07-27 DEC: Ins nullFlavo Yoni S. 751991 c3-0 Memoria 13:25:00 13:25:00 Verificati margarita Cordero i7q-7k64- b akosua shaffer MD[facility] 43d-dfaf86 Herm bryce 52221t 2015-07-27 2015-07-27 DEC: Ins nullFlavo Yoni S. 4u087x b5-a Memoria 12:25:00 12:25:00 Verificati farrah Dougherty-438d- b l on MD, PLLC 85f-b27a99 Herm bryce 90df9f 2015-07-27 2015-07-27 DEC: Ins nullFlavo Yoni Hudson. a4f2f9 cd-f Memoria 12:25:00 12:25:00 Verificati r Gil, 425-4823- 9 l on MD, PLLC [id number] Herm bryce 62331b 2015-07-27 2015-07-27 DEC: Ins nullFlavo Yoni S. 0ee65b 3a-d Memoria 12:25:00 12:25:00 Verificati r Gil, m56-50z7- 9 l on MD, PLLC 860-4def8b Herm bryce 4d11fe 2015-07-27 2015-07-27 DEC: Ins nullFlavo Yoni S. ecac34 07-13 Memoria 12:25:00 12:25:00 Verificati r Gil, 062-47e4- 8 l on MD, PLLC 821-q18435 Herm bryce 61ba85 2015-07-27 2015-07-27 DEC: Ins nullFlavo Yoni Hudson. 3q662a 92-a Memoria 12:25:00 12:25:00 Verificati r Gil, 352-421d- 8 l on MD, PLLC o90-lohp12 Herm bryce 45a5de 2015-07-27 2015-07-27 Outpatient Yoni Vallejo S. [id number] Memoria 07:25:00 07:25:00 Gil Cordero l MD, [facility] , [facility] Norbert n 2015-06-17 2015-06-17 Concussion nullFlavo Yoni S. 13cf 3231-e Memoria 14:54:00 14:54:00 margarita Cordero 931-40ae-a [facility] 3t8-1v0u55 Herm bryce vt940a 2015-06-17 2015-06-17 Concussion nullFlavo Yoni S. 036b faf4-b Memoria 14:54:00 14:54:00 margarita Cordero 0z8-52tj-t [facility] 122-6bd1b2 Herm bryce 8873dc 2015-06-17 2015-06-17 Concussion nullFlavo Yoni Hudson. c886 fee7-a Memoria 14:54:00 14:54:00 r Gil 11a-4642-jacquelin south MD, PLL[facility] w77-468z4r Herm bryce r9521a 2015-06-17 2015-06-17 Concussion nullFlavo Yoni S. 5fe8 c51d-4 Memoria 13:54:00 13:54:00 r Gil 505-4fe3-so south MD, PLL[facility] h60-vm4fc0 Herm bryce d4be82 2015-06-17 2015-06-17 Concussion nullFlavo Yoni S. c08f 6fb8-9 Memoria 13:54:00 13:54:00 r Gil 587-424f-so south MD, PLL[facility] ed5-6017e0 Herm bryce 67951v 2015-06-17 2015-06-17 Concussion nullFlavo Yoni Hudson. ff94 457b-8 Memoria 13:54:00 13:54:00 r Gil 560-4b46-9 akosua [facility] f6n-795f00 Herm bryce 157754 8282-11-13 2015-06-17 Concussion nullFlavo Yoni S. d922 246c-8 Memoria 13:54:00 13:54:00 r Gil cc1-43c0-jacquelin south MD, PLL[facility] 8f2-a9l8yq Herm bryce 3d73ca 2015-06-17 2015-06-17 Concussion Godwino Yoni Hudson. ecba a5e8-a Memoria 13:54:00 13:54:00 margarita Cordero 3o1-9hb0-e l MD, PLLC 00c-1of395 Herm bryce wb1937 2015-06-17 2015-06-17 Outpatient Yoni S. Yoni S. [id number] Memoria 08:54:00 08:54:00 [facility] l MD, [facility] Norbert n 2015-05-27 2015-05-27 Updated nullFlavo Yoni S. 889429r b-e Memoria 15:43:00 15:43:00 Consent margarita Cordero w02-19x9-u akosua Arroyo MD, PLL[facility] 2r5-l9u9wm Herm bryce ae43c6 2015-05-27 2015-05-27 Updated abidaFlavo Yoni Hudson. m40r4w6 7-e Memoria 15:43:00 15:43:00 Consent margarita Cordero m5o-6h55-e akosua Arroyo MD[facility] 813-mw1122 Herm bryce m17814 2015-05-27 2015-05-27 Updated Godwino Yoni Hudson. 9dfd374 d-5 Memoria 15:43:00 15:43:00 Consent margarita Cordero, 327-4485-9 akosua Arroyo MD, [facility] [id number] Herm bryce 5992b2 2015-05-27 2015-05-27 Updated nullFlavo Yoni Hudson. [id number] d-f Memoria 14:43:00 14:43:00 Consent margarita Cordero 8bd-46d3-a akosua Arroyo MD, [facility] k0g-tt9b0r Herm bryce a20aa7 2015-05-27 2015-05-27 Updated Godwino Yoni Harper [id number] 0-a Memoria 14:43:00 14:43:00 Consent margarita Gil 5ca-4026-b akosua Arroyo MD[facility] 019-ddb26e Herm bryce 0de1ac 2015-05-27 2015-05-27 Updated Anita Hudson. c0h64c5 1-8 Memoria 14:43:00 14:43:00 Consent margarita Cordero 9j3-56p9-8 akosua Arroyo MD, [facility] 2ed-28bacf Herm bryce 8501d8 2015-05-27 2015-05-27 Updated Anita Hudson. w475b86 4-e Memoria 14:43:00 14:43:00 Consent margarita Gil 34d-4089-9 akosua Arroyo MD, PLL[facility] 622-e4c98b Herm bryce 4p7914 2015-05-27 2015-05-27 Updated Godwino Yoni Hudson. y7m0ek2 a-0 Memoria 14:43:00 14:43:00 Consent margarita Gil 5p5-9526-i akosua Arroyo MD[facility] 21f-xd6867 Herm bryce 65e24b 2015-05-27 2015-05-27 Updated nullFlavo Yoni Harper kcyd45t 2-a Memoria 14:43:00 14:43:00 Consent r Gil 53a-41a0-8 akosua Arroyo MD, [facility] abf-4adef5 Herm bryce 1z380n 2015-05-27 2015-05-27 Updated nullFlavo Yoni S. 16c61l5 3-b Memoria 14:43:00 14:43:00 Consent r Gil cef-40cd-a akosua Arroyo MD, [facility] ab2-8z122v Herm bryce 0993a1 2015-05-27 2015-05-27 Syncope nullFlavo Yoni S. g3wu9e6 7-7 Memoria 14:30:00 14:30:00 margarita Cordero j58-28s6-2 akos[facility] 8t2-f4e3g2 Herm bryce 6an265 2015-05-27 2015-05-27 Syncope nullFlavo Yoni S. 0x2q8t6 e-2 Memoria 14:30:00 14:30:00 margarita Cordero 9p1-64z8-k [facility] 138-be5f45 Herm bryce b0u221 2015-05-27 2015-05-27 Syncope nullFlavo Yoni S. g63hy06 6-0 Memoria 14:30:00 14:30:00 margarita Cordero fbb-4ebc-b [facility] 67a-4o1919 Herm bryce 436a13 2015-05-27 2015-05-27 Syncope nullFlavo Yoni S. 4531eeb 8-e Memoria 13:30:00 13:30:00 margarita Cordero 95e-4609-8 akos[facility] 700-4p4499 Herm bryce 250adc 2015-05-27 2015-05-27 Syncope nullFlavo Yoni S. 7z58208 8-0 Memoria 13:30:00 13:30:00 margarita Cordero ee4-4ff0-9 [facility] d5o-5bl0a5 Herm bryce 738835 3959-10-23 2015-05-27 Syncope nullFlavo Yoni S. o3j417y f-b Memoria 13:30:00 13:30:00 margarita Cordero 632-4de9-8 [facility] 3f2-r5b2ru Herm bryce 9950d1 2015-05-27 2015-05-27 Syncope nullFlavo Yoni Hudson. s697356 4-b Memoria 13:30:00 13:30:00 r Gil 41a-43f8-b akosua [facility], [facility] fe9-6e08d9 Herm bryce 71de66 2015-05-27 2015-05-27 Syncope nullFlavo Yoni Harper 77935o7 8-1 Memoria 13:30:00 13:30:00 r Gil h6r-6243-c akosua ALE[facility], [facility] bf4-8d78fe Herm bryce 6g9011 2015-05-27 2015-05-27 Syncope nullFlavo Yoni Hudson. 714y654 d-8 Memoria 13:30:00 13:30:00 r Gil be2-490c-9 akosua [facility], [facility] 9ea-139c35 Herm bryce 934df9 2015-05-27 2015-05-27 Syncope nullFlavo Yoni Hudson. 69k24vk 9-1 Memoria 13:30:00 13:30:00 margarita Cordero 3q9-1dtp-b l MD, [facility] 319-a49ed9 Herm bryce 6581ff 2015-05-27 2015-05-27 Outpatient Yoni Harper [id number] Memoria 09:43:00 09:43:00 Gil Cordero l MD, [facility], [facility] Nobrert n 2015-05-27 2015-05-27 Outpatient Yoni Harper [id number] Memoria 08:30:00 08:30:00 Gil Cordero l MD, [facility], [facility] Norbert n Results Test Description Test Time Test Comments Results Result Comments Source . [facility] - GC/Chlamydia 2020-11-25 15:47:00 Test Item Value Reference Range Interpretation Comme nts Case (test code = Case) Click ImageLink button for report. N [facility][Q] HIV-1/2 Antigen and Antibodies, Fourth Generation, with [id number] 10:28:00 Test Item Value Reference Range Interpretation Comments HIV AG/AB, 4TH NON-REACTIVE NON-REACTIVE N HIV-1 antigen and GEN; Normal HIV-1/HIV-2 ant ibodies were (test code = [place] [address]-2) laboratory evid ence of HIVinfection. P HEMANTH NOTE: This informatio n has been disclosed toyou from records whose confidentiality may beprotected by state law. If your state r equires suchprotection, then the state law prohi bits you frommaking any further disclosure of t he informationwith out the specific writte n consent of the personto om it pertains, or as otherwise permitted by kanwal alvarezA general authorization f or the release of medi yessica orother information is NOT sufficient for this purpose. For ad ditional information ple ase refer tohttp://educat MaxTraffic/fa q/ZDH756(Thi s link is being provided for informational/e ducational purposes only.) The performance of this assay has not been clinicallyvalid ated in patients less t ball 2 years old. SPECIMEN R ECEIVED DATE AND TIME: 42300913 [facility][Q] HEPATITIS B SURFACE ANTIGEN W/REFL [id number] 10:28:00 Test Item Value Reference Range Interpretation Comments HEPATITIS B SURFACE NON-REACTIVE NON-REACTIVE N SPECIMEN RECEIVED DATE ANTIGEN; Normal AND TIME: (test code = 5195-3) [facility][QL] HEPATITIS C [id number] 10:28:00 Test Item Value Reference Range Interpretation Comments HEPATITIS C NON-REACTIVE NON-REACTIVE N ANTIBODY; Normal (test code = 38480-3) SIGNAL TO CUT-OFF 0.02 <1.00 N HCV antibo dy was (test code = SIGNAL non-reac tive. There is TO CUT-OFF) no laboratory e vidence of HCV infectio n. In most cases, no further action is requi red. However,if rece nt HCV exposure is jos pected, a test for HCV RNA(test code 3 5645) is suggested. F or additional info rmation please refer tohttp://educat ion.[employer] stdiagnostics.c om/faq/ LIC05u0(This li nk is being provided for informational/e ducatio nal purposes on ly.) SPECIMEN RECEIV ED DATE AND TIME: 42300913 [facility][QL] RPR (DX) W/REFL TITER AND CONFIRMATORY [id number] 10:28:00 Test Item Value Reference Range Interpretation Comments RPR (DX) W/REFL TITER NON-REACTIVE NON-REACTIVE N SPECIM EN RECEIVED AND CONFIRMATORY DATE AND TI ME: TESTING (test code = 7042011 14729 RPR (DX) W/REFL TITER AND CONFIRMATORY TESTING) [facility][QL] CMP [id number] 12:19:00 Test Item Value Reference Range Interpretation Comments GLUCOSE; Normal 83 mg/dl 65-99 N Fasting refe rence (test code = interval 1547-9) UREA NITROGEN 8 mg/dl 7-20 N (BUN) (test code = UREA NITROGEN (BUN)) CREATININE (test 0.59 mg/dl 0.50-1.00 N code = CREATININE) eGFR NON- 133 {ML/MIN/1.7} > OR = 60 N CROATIAN (test code = eGFR NON-) eGFR 154 {ML/MIN/1.7} > OR = 60 N CROATIAN (test code = eGFR ) BUN/CREATININE NOT APPLICABLE 6-22 RATIO (test code = BUN/CREATININE RATIO) SODIUM (test code 135 mmol/L 135-146 N = SODIUM) POTASSIUM (test 4.4 mmol/L 3.8-5.1 N code = POTASSIUM) CHLORIDE (test 105 mmol/L 98-110 N code = CHLORIDE) CARBON DIOXIDE 23 mmol/L 20-32 N (test code = CARBON DIOXIDE) CALCIUM (test code 9.3 mg/dl 8.9-10.4 N = CALCIUM) PROTEIN, TOTAL 8.5 g/dl 6.3-8.2 (test code = PROTEIN, TOTAL) ALBUMIN (test code 4.2 g/dl 3.6-5.1 N = ALBUMIN) GLOBULIN (test 4.3 {G/DL CALC} 2.0-3.8 code = GLOBULIN) ALBUMIN/GLOBULIN 1.0 {CALC} 1.0-2.5 N RATIO (test code = ALBUMIN/GLOBULIN RATIO) BILIRUBIN, TOTAL; 1.2 mg/dl 0.2-1.1 Above High Threshold (test code = 30949-0) ALKALINE 64 u/l 36-128 N PHSPHATASE (test code = ALKALINE PHSPHATASE) AST; Normal (test 20 u/l 12-32 N code = 1916-6) ALT; Normal (test 21 u/l 5-32 N SPECIMEN R ECEIVED code = 1742-6) DATE AND TIME : eGFR NON-AFR. 133 {ML/MIN/1.7} > OR = 60 N CROATIAN (test code = eGFR NON-AFR. CROATIAN) ALKALINE 64 u/l 36-128 N PHOSPHATASE (test code = ALKALINE PHOSPHATASE) [facility][QL] SED RATE BY MODIFIED [id number] 12:19:00 Test Item Value Reference Range Interpretation Comments SED RATE BY MODIFIED 91 mm/h < OR = 20 SPECIME N RECEIVED DATE [facility] (test code AND TI ME: [id number] = SED RATE BY MODIFIED WESTERGREN) [facility][QL] CBC (INCLUDES DIFF/PLT)2019-12-31 12:19:00 Test Item Value Reference Range Interpretation Comments WHITE BLOOD CELL 7.1 3.8-10.8 N COUNT (test code = {Thousand/u} WHITE BLOOD CELL COUNT) RED BLOOD CELL COUNT 4.21 3.80-5.10 N (test code = RED {Million/uL} BLOOD CELL COUNT) HEMOGLOBIN; Normal 12.4 g/dl 11.7-15.5 N (test code = 56972-5) HEMATOCRIT; Normal 37.6 % 35.0-45.0 N (test code = 4544-3) MCV; Normal (test 89.3 fL 80.0-100.0 N code = 787-2) MCHC; Normal (test 33.0 g/dl 32.0-36.0 N code = 35047-1) RDW; Normal (test 13.3 % 11.0-15.0 N code = 788-0) PLATELET COUNT; 327 140-400 N Normal (test code = {Thousand/u} 777-3) MPV; Normal (test 9.7 fL 7.5-12.5 N code = 16797-5) ABSOLUTE NEUTROPHILS 4090 0498-1152 N (test code = {cells/uL} ABSOLUTE NEUTROPHILS) ABSOLUTE LYMPHOCYTES 2556 850-3900 N (test code = {cells/uL} ABSOLUTE LYMPHOCYTES) ABSOLUTE MONOCYTES 383 {cells/uL} 200-950 N (test code = ABSOLUTE MONOCYTES) ABSOLUTE EOSINOPHILS 43 {cells/uL} 15-500 N (test code = ABSOLUTE EOSINOPHILS) ABSOLUTE BASOPHILS 28 {cells/uL} 0-200 N (test code = ABSOLUTE BASOPHILS) NEUTROPHILS (test 57.6 % N code = NEUTROPHILS) LYMPHOCYTES (test 36.0 % N code = LYMPHOCYTES) MONOCYTES; Normal 5.4 % N (test code = 24652-4) EOSINOPHILS; Normal 0.6 % N (test code = 99357-7) BASOPHILS; Normal 0.4 % N SPECIMEN R ECEIVED (test code = DATE AND TIME: 27999-0) [facility][QL] VITAMIN D, 25-HYDROXY, LC/MS/[id number] 12:19:00 Test Item Value Reference Range Interpretation Comments VITAMIN 139 ng/ml 30-100 Vitamin D Statu s 25-OH D,25-OH,TOTAL,IA Vitamin D: Deficiency: (test code = VITAMIN <20 ng/ mLInsufficiency: D,25-OH,TOTAL,IA) 20 - 29 ng /mLOptimal: > or = 30 ng/mL F or 25-OH Vitamin D testi ng on patients on D2-supplementat ion and patients for wh om quantitation of D2 and D3 fractions is required, the QuestAssureD(TM )25-OH VIT D, (D2,D3), LC/MS/MS is recommended: order code 58274 (pat ients >2yrs).See Note 1 Note 1 For additional information, pl ease refer to http://educatio n.[employer].[place]/f aq/XRU801 (This link is b eing provided for informational/e ducationa l purposes only.)SPECIMEN RECEIVED DATE AND TIME: [place] [facility][Q] ADENOVIRUS AG DETECTION, GASTROENTERITIS, [id number] 12:19:00 Test Item Value Reference Range Interpretation Comments ADENOVIRUS AG, DETECTED A REFERENCE RAN GE: NOT EIA (test code = DETECTED A positive test ADENOVIRUS AG, result in ass ociation EIA) withdiarrhea hi ghly suggests that Adenovirus is thecause of the gastroen teritis. Adenovirus may shedasymptomati jesus alberto up to 18 months after infection.The v irus may also become latent, then reactivate.If t he patient, in fact, has a bacterialentero colitis due to Staphylococc us aureus, highlevels of t he bacterial protein A may cross-reactwith this test and result in a false positive. SPECI MEN RECEIVED DATE AND TIME: [facility][Q] Clostridium difficile Toxin/GDH with reflex to [id number] 12:19:00 Test Item Value Reference Range Interpretation Comments Clostridium Difficile See Comment CLOSTR IDIUM DIFFICILE Toxin/GDH w/Refl to TOXIN/GD H W/REFL TO PCR (test code = PCR Micro N umber: Clostridium Difficile [id number] Test Status: Toxin/GDH w/Refl to Final Sp ecimen PCR) Source: STOOL Specimen Qualit y: Adequate GDH An tigen: Not Detected To jen A and B: Not Dete cted COMMENT: No tox igenic C. difficile de tected For additional information, pl ease refer to http://educatio n.[employer] t[employer].co m/faq/ MFK834 (This li nk is being provided for informational/e ducati onal purposes only.)SPECIMEN RECEIVED DATE A ND TIME: [facility][Q] CULTURE, STOOL, USMAN/SHIG/CAMPY AND SHIGA TOXINS EIA W/RFL E.COLI O157 [id number] 12:19:00 Test Item Value Reference Range Interpretation Comments EIA (test code = See Comment SHIGA TOXIN S, EIA W/RFL EIA) TO E.COLI O157 CULTURE Micro Number: [id number] Test Status: Fi nal Specimen Source : STOOL Specimen Qualit y: Adequate Shiga Toxin: Not DetectedSPECIME N RECEIVED DATE AND TIME: CULTURE (test See Comment SALMONELLA AND SHIGELLA, code = CULTURE) CULTURE Micr o Number: [id number] Test S tatus: Final Specimen Source: STOOL Specimen Quality: Adequate Result : No Salmonella or S higella isolatedSPECIME N RECEIVED DATE AND TIME: [facility][QL] GIARDIA AG, EIA, [id number] 12:19:00 Test Item Value Reference Range Interpretation Comments GIARDIA AB, EIA, See Comment GIARDIA AG, EIA, STOOL STOOL (2 SPECIMENS) Micro Nu mber: [id number] (test code = Test Status: Fi nal GIARDIA AB, EIA, Specimen So urce: STOOL STOOL (2 Specimen Qualit y: SPECIMENS)) Adequate Giardi a Result 1: Not Detected NOTE: Due to intermit tent shedding, one n egative sample does not necessarily rul e out the presence of a parasitic infection.SPECI MEN RECEIVED DATE A ND TIME: [id number] [place] [facility]iciansX[facility] Chest 2 views [id number] 14:42:00EXAM: XR CHEST 2 VIEWSDATE: 06/12/2019 14:42 CSTINDICATION: - C/O Wheezing, SOBCOMPARISON: 05/25/2019TECHNIQUE: PA and lateral chest radiographsFINDINGS:Lines, tubes and hardware: None.Lungs and pleura:Lungs are clear. Costophrenic sulci are sharp.Heart and mediastinum: normal. Bones: No acute bony abnormality is identified.IMPRESSION: 1. No acute cardiopulmonary abnormality.--Read by: Vince Kelly MDDictated Date/time: 06/12/19 15:41Electronically Signed by: Vince Kelly MD 06/12/1915:42FINAL REPORTUT PhysiciansXRAY Chest 1view [id number] 14:31:00 Test Item Value Reference Range Interpretation Comments Chest 1view (test code = Chest Cancel Reason: 1view) [facility][QL] ACTH, [id number] 08:45:01 Test Item Value Reference Range Interpretation Comments ACTH, PLASMA (test Cancel Reason: Modified code = ACTH, PLASMA) Order [facility][H] Renin [id number] 08:45:01 Test Item Value Reference Range Interpretation Comments Renin Activity (test Cancel Reason: code = Renin Activity) Modified Order [facility][QL] BASIC METABOLIC PANEL W/[id number] 08:45:01 Test Item Value Reference Range Interpretation Comments Glucose Lvl (test 82 mg/dl 70-99 Adult refe rence range code = 2345-7) values reflec t the clinical guidel inesof the [place] [employer]. Blood Urea 8 mg/dl 7-22 Nitrogen (test code = 3094-0) Creatinine Lvl 0.70 mg/dl 0.50-1.40 (test code = 2160-0) Sodium Level 139 {mEq/l} 135-145 (test code = 2951-2) Potassium Level 4.1 {mEq/l} 3.5-5.1 (test code = 2823-3) Chloride Level 108 {mEq/l} 95-109 (test code = 2075-0) Carbon Dioxide 24 {mEq/l} 24-32 (test code = 2027-) AGAP (test code = 11.1 {mEq/l} 10.0-20.0 70349-4) Calcium Level 9.1 mg/dl 8.5-10.5 Total (test code = 86875-7) eGFR (test code = 127 The eGFR i s calculated 39379-5) {ML/MIN/1.7} using the CKD-E PI formula. In mos t young, healthyindividu als the eGFR will be >9 0 mL/min/1.73m2. The eGFR declines with a ge. AneGFR of 60-89 may be normal in some population s, particularly th e elderly, forwhom the CKD -EPI formula has not been extensively durga idated. Use of the eGFR isnot recommended in the following populations:Ind ividuals with unstable c reatinine concentrations, including patient s and those with seri ous co-morbid conditions.Barbara ents with extremes in mus ella mass or diet.The ernie a above are obtained fr om the National Kidney Disease Education Progr am(NKDEP) which jenifer horton recommends that when the eGFR is used in patientswith ex tremes of body mass index for purposes of opal g dosing, the eGFR should be multiplied by t he estimated BMI. [facility]] T4, [id number] 08:45:01 Test Item Value Reference Range Interpretation Comments T4 Free (test code = 3024-7) 1.01 ng/dl 0.76-1.46 [facility]] TSH, 3RD [id number] 08:45:01 Test Item Value Reference Range Interpretation Comments TSH (test code = 55917-5) 1.340 {uIU/ml} 0.360-3.740 [facility]] CORTISOL, [id number] 08:45:01 Test Item Value Reference Range Interpretation Comments Cortisol (test code = 8.6 ug/dL ADULT RANGE:8AM 6.0 - Cortisol) 23.0 ug/dL4PM 3 .0 - 16.0 ug/dL [facility]] ACTH, [id number] 08:45:01 Test Item Value Reference Range Interpretation Comments ACTH Level (test code = 2141-0) 11 pg/ml 0-46 [facility][H] Renin [id number] 08:45:01 Test Item Value Reference Range Interpretation Comments Renin Activity 2.531 0.167-5.380 This test was developed and (test code = {ngmLhr} its performance Renin characteristics determined by Activity) [facility]. It has not been cleared orappro jennifer by the Food and Drug Administration. Performed At: [facility] [id number] [place], [place] [id number] ra Bishop ALEMAN Ph:[phone] [facility]] ACTH, [id number] 12:09:00 Test Item Value Reference Range Interpretation Comments ACTH, PLASMA (test 6 pg/ml 6-50 Reference range applies only code = ACTH, to the specimen s PLASMA) collectedbeteran galindo 7am-10am. [facility][Q] CORTISOL, TOTAL, [id number]/MS/[id number] 12:09:00 Test Item Value Reference Range Interpretation Comments CORTISOL, 7.2 {mcg/dl} Adult Reference Ranges for TOTAL, Cortisol, Total : 8-10 AM LC/MS/MS 4.6-20.6 mcg/dL 4-6 PM 1.8-13.6 (test code mcg/dL Cortisol Response to ACTH = CORTISOL, Peak >20.0 mcg/ dL Peak >16.0 TOTAL, mcg/dL after IM injection This LC/MS/MS) test was develo ped and its analytical performancechar acteristics have been determined by [facility] . It has not beencleared or approved by FDA. This assay has been validatedpursua nt to the CLIA regulations and is used for clinicalpurpose s. [facility] PhysiciansTobacco Use [id number] 15:03:23 Test Item Value Reference Range Interpretation Comments Completed (test code = Completed) DONE [facility][QL] [id number] 14:35:01 Test Item Value Reference Range Interpretation Comments Luteinizing Hormone 41.21 {miU/ml} LH ped iatric ranges (test code = [place] [address]2277-5) literature* age (yrs) male(miu/ml) age(yrs) female(miu/ml) -------- -------- P repub ertalChildren: 2-8 0-0.3 2-8 0-0.3Puberty: < 9.8 0-0.3 <9.2 0-0. 3 9.8-14.5 0-4.9 9.2-13.7 0-4.7 10.7-15.4 0.2-5 .0 10.0-14.4 0-12. 0 11.8-17.3 0.4-7 .0 10.7-18.6 0.4-11.7*[facility] has no t established normalranges fo r the above age groups.Adult reference range s: Male: 2.0 - 12. 0 miu/ml Female: Follicular phas e: 2.0-15.0 miu/ml Mid-cycle peak: 22.0-105.0 miu/ ml Luteal phase: 0.6-19.0 miu/ml Post menopausal: 16.0-64.0 miu/m l [facility]] [id number] 14:35:01 Test Item Value Reference Range Interpretation Comments Estridiol Lvl (test 204.2 pg/ml Menstrua ting Females: code = 2243-4) (By day in ella related to LH P eak) Follicular phas e (-12 to -4 days) 19. 5 - 144.2 pg/mL Mid cycle (-3 to +2 days) 63.9 - 356.7 pg/mL Lut eal Phase (+4 to +1 2 days) 55.8 - 214.2 pg /mL Postmenopausal (untreated) 0.0 - 32.2 pg/mLMales: 0.0 - 39.8 pg/mL [facility]] [id number] 14:35:01 Test Item Value Reference Range Interpretation Comments Follicle Stimulating 16.1 {miU/ml} FSH pe diatric ranges Hormone (test code = publish ed in the 85052-1) literature* age (yrs) male(miu/ml) age(yrs) female(miu/ml) -------- -------- P repub ertalChildren: 2-8 0-3.0 2-8 1.0-4.2Puberty: <9.0 0-3.0 <9.2 1.0- 4.2 9.8-14.5 1.8-3. 2 9.2-13.7 1.0-10 .8 10.7-15.4 1.2-5 .8 10.0-14.4 1.5-1 2.8 11.8-16.2 2.0-9 .2 10.7-15.6 1.5-1 1.7 12.8-17.3 2.6-1 1.0 11.8-18.6 1.0-9.2*[facility] has no t established normalranges fo r the above age groups.Adult reference range s: Male: 1.0 - 12. 0 miu/ml Female: Follicular phas e: 3.0-20.0 miu/ml Mid-cycle: 9.0- 26.0 miu/ml Luteal p hase: 1.0-12.0 miu/ml Post menopausal: 18.0-153.0 miu/ ml [facility]] CMP [id number] 14:35:01 Test Item Value Reference Range Interpretation Comments Sodium Level 137 {mEq/l} 135-145 (test code = 2951-2) Potassium Level 4.3 {mEq/l} 3.5-5.1 (test code = 2823-3) Chloride Level 106 {mEq/l} 95-109 (test code = 5-0) Carbon Dioxide 25 {mEq/l} 24-32 (test code = 2027-) AGAP (test code = 10.3 {mEq/l} 10.0-20.0 43838-5) Glucose Lvl (test 75 mg/dl 70-99 Adult refe rence range code = 2345-7) values reflec t the clinical guidel inesof the [place] [employer] es [employer]. Creatinine Lvl 0.60 mg/dl 0.50-1.40 (test code = 2160-0) Blood Urea 9 mg/dl 7-22 Nitrogen (test code = 3094-0) BUN/Creatinine 15 6-25 Ratio (test code = 3097-3) Total Protein; 8.6 g/dl 6.4-8.4 Above High Threshold (test code = 2885-2) Albumin Lvl (test 3.5 g/dl 3.5-5.0 code = 1751-7) Globulin; Above 5.1 g/dl 2.7-4.2 High Threshold (test code = 53690-7) A/G Ratio (test 0.7 0.7-1.6 code = 1759-0) Calcium Level 9.1 mg/dl 8.5-10.5 Total (test code = 38801-1) ALT (test code = 33 u/l 0-65 1743-4) AST (test code = 26 u/l 0-37 37597-1) Bili Total (test 1.1 mg/dl 0.2-1.3 code = 1975-2) Alk Phos (test 109 u/l 39-136 code = 1783-0) eGFR (test code = 134 The eGFR i s calculated 91555-2) {ML/MIN/1.7} using the CKD-E PI formula. In mos t young, healthyindividu als the eGFR will be >9 0 mL/min/1.73m2. The eGFR declines with a ge. AneGFR of 60-89 may be normal in some population s, particularly th e elderly, forwhom the CKD -EPI formula has not been extensively durga idated. Use of the eGFR isnot recommended in the following populations:Ind ividuals with unstable c reatinine concentrations, including patient s and those with seri ous co-morbid conditions.Barbara ents with extremes in mus ella mass or diet.The ernie a above are obtained fr om the National Kidney Disease Education Progr am(NKDEP) which jenifer horton recommends that when the eGFR is used in patientswith ex tremes of body mass index for purposes of opal g dosing, the eGFR should be multiplied by t he estimated BMI. [facility]] LIPID [id number] 14:35:01 Test Item Value Reference Range Interpretation Comments LDL (test code = 93691-6) 83 mg/dl <=99 Chol (test code = 2093-3) 157 mg/dl <=199 Trig; Above High Threshold (test 188 mg/dl <=149 code = 2571-8) HDL Cholesterol; Below Low 36 mg/dl >=61 Threshold (test code = 2085-9) CHD Risk (test code = 31729-2) 4.36 3.90-5.80 VLDL (test code = VLDL) 38 [facility]] T4, [id number] 14:35:01 Test Item Value Reference Range Interpretation Comments T4 Free (test code = 3024-7) 1.04 ng/dl 0.76-1.46 [facility]] TSH, 3RD [id number] 14:35:01 Test Item Value Reference Range Interpretation Comments TSH (test code = 16320-4) 0.928 {uIU/ml} 0.360-3.740 [facility]] Beta hCG [id number] 14:35:01 Test Item Value Reference Range Interpretation Comments Serum Test (test code = Negative Negative 2109-12) [facility][H] Thyrotropin Receptor [id number] 14:35:01 Test Item Value Reference Range Interpretation Comments Thyrotropin Receptor Ab <0.50 0.00-1.75 Perf ormed At: [facility] (test code = Thyrotropin Lab [facility] [id number] Receptor Ab) [place], [place] [id number] damaso Alas MD Ph:[phone] [facility][H] Renin [id number] 14:35:01 Test Item Value Reference Range Interpretation Comments Renin Activity 1.516 0.167-5.380 This test was developed and (test code = {ngmLhr} its performance Renin characteristics determined by Activity) [facility]. It has not been cleared orappro jennifer by the Food and Drug Administration. Performed At: [facility] [place] [id number] Alas MD Ph:[phone] [facility][H] Misc [id number] 14:35:01 Test Item Value Reference Range Interpretation Comments [facility] (test COMMENT Test Orde red: 195106 code = [facility] Macropr olactinProlactin, Serum (ICMA) 3 7 [H ] ng/mL ESHook ef fect or prozone effect has been ruled out byper forming additional dilu tion analysis on all prolactintestin g.Reference Range:Children and Adult Females: 3 - 24 Monomeric Prolactin (ICMA ) 19 ng/mL ESReference Ran ge:Children and Adults: 3 - 24Percent Macroprolactin 49 % ESPerformed At: [facility] [address] [id number] ra Bishop ALEMAN Ph:[phone] At: [facility] [id number] [place], [place] [id number] arleen Salter MD Ph:[phone] [facility] Physicians
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
--- NOTE | 2023-03-02 20:47 | RAD REPORT ---
EXAM DESCRIPTION: RAD - Knee Right 3 View - 03/02/2023 8:38 pm CLINICAL HISTORY: PAIN COMPARISON: No comparisons FINDINGS: No fracture or dislocation seen.
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
[2023-03-02] MEDS ORDERED: HYDROCODONE/APAP 7.5/325 MG TAB ONE (21:24)
[2023-03-02] MEDS ORDERED: IBUPROFEN 200 MG TAB PO ONE (21:25)
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
[2023-03-02] MEDS ORDERED: NA CHLORIDE 0.9% 1,000 ML ONE (23:42)
[2023-03-02] MEDS ORDERED: FENTANYL CITR 100 MCG/2 ML ONE (23:42)
[2023-03-03] MEDS ORDERED: KETAMINE HCL IN 0.9 % NACL 50 MG/5 ML SYRINGE IV ONE (00:33)
[2023-03-03] MEDS ORDERED: propofoL 200 MG/20 ML VIAL IV ONE (01:32)
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
[2023-03-03 03:26] VITALS: TEMP 100
[2023-03-03 03:28] VITALS: BP 122/100; O2SAT 99
--- NOTE | 2023-03-03 13:09 | EKG ---
Test Date: 2023-03-03 Test Time: 00:34:01 Die Operator: GABRIEL MEASUREMENT RESULTS: Intervals: Rate: 74 NV: 152 QRSD: 76 QT: 390 QTc: 432 Colby: P: 40 NV: 152 QRS: 65 T: 54 INTERPRETIVE STATEMENTS: Normal sinus rhythm Normal ECG No previous ECG available for comparison Electronically Signed On 03-03-23 13:08:47 CDT by León Smith
--- NOTE | 2023-03-03 18:44 | RAD REPORT ---
EXAM DESCRIPTION: XR Right Shoulder, 1 View CLINICAL HISTORY: The patient is 22 years old and is Female; POST REDUCTION Shoulder 1 View TECHNIQUE: One view of the right shoulder. COMPARISON: Radiograph March 02, 2023 FINDINGS: BONES/JOINTS: Successful reduction of the previously demonstrated anterior shoulder disl ocation. No acute fracture. SOFT TISSUES: Unremarkable. IMPRESSION: Successful reduction of the previously demonstrated anterior shoulder dislocation. Electronically signed by: Densise Shultz MD 03/03/2023 2:03 AM CDT Due to temporary technical issues with the PACS/Fluency reporting system, reports are being signed by the in house radiologists without review as a courtesy to insure prompt reporting. The interpreting radiologist is fully responsible for the content of the report.
--- NOTE | 2023-03-03 18:46 | RAD REPORT ---
EXAM DESCRIPTION: RAD - Shoulder 1 View - 03/03/2023 2:45 am XR Right Shoulder, 1 View CLINICAL HISTORY: The patient is 22 years old and is Female; POST REDUCTION #2Shoulder 1 View TECHNIQUE: One view of the right shoulder. COMPARISON: Radiographs performed the same day at 0109 hours FINDINGS: BONES/JOINTS: The humeral head is located. The acromioclavicular joint and glenohumeral joint are intact. No acute fracture. No dislocation. SOFT TISSUES: Unremarkable. IMPRESSION: No acute findings in the right shoulder. Electronically signed by: Denisse Shultz MD 03/03/2023 2:33 AM CDT Due to temporary technical issues with the PACS/Fluency reporting system, reports are being signed by the in house radiologists without review as a courtesy to insure prompt reporting. The interpreting radiologist is fully responsible for the content of the report.
== END 2023-03-03 03:01 | disposition home or self-care (01) ==
LOC: ER 19:06
PROC: 0RSJXZZ Reposition Right Shoulder Joint, External Approach (ICD-10-PCS; principal; 2023-03-03)
DX: S43.084A Other dislocation of right shoulder joint, initial encounter (principal); M54.2 Cervicalgia; M25.561 Pain in right knee; V59.50XA Passenger in pick-up truck or van injured in collision with unspecified motor vehicles in traffic accident, initial encounter; Z88.8 Allergy status to other drugs, medicaments and biological substances
CPT/HCPCS: 93005; 70450; 72125; 73020 ×3; 73030; 73562; 23655; J2704; J3010; J7030; 96361; 96374; 96375; 99285